=== PATIENT | female | born 1945 | race Caucasian/White ===

== ENCOUNTER → 2017-02-23 | Outpatient (CLI) | payer BC ==
[~2017-02-23] MED LIST: EPP3 IM
== END | disposition home or self-care (01) ==
LOC: C.LAB1850 12:58
PROVIDERS: ATTEND Internal Medicine Pulmonary Disease
DX: J45.909 Unspecified asthma, uncomplicated (principal)

== ENCOUNTER → 2017-03-17 | Outpatient (CLI) | payer BC ==
--- NOTE | 2017-03-17 13:29 | MAMMOGRAPHY REPORT ---
BILATERAL DIGITAL SCREENING MAMMOGRAM WITH CAD: 03/17/2017 CLINICAL HISTORY: Routine screening. TECHNIQUE: Bilateral CC and MLO views were obtained. Current study was also evaluated with a Comput er Aided Detection (CAD) system. COMPARISON: Comparison is made to exams dated: 03/14/2016 mammogram, 03/09/2015 mammogram, 03/08/2014 m ammogram, 03/07/2013 mammogram, 03/02/2012 mammogram, and 02/27/2011 mammogram - [facility]. BREAST COMPOSITION: The tissue of both breasts is heterogeneously dense, which may obscure small mas ses. FINDINGS: There is expected architectural distortion in the anterior left breast, in an area of prio r surgery. This appearance is stable when comparing to all available prior mammograms dating back to at least 12/16/2007. The parenchymal pattern is unchanged. No developing mass, architectural distor tion or cluster of suspicious microcalcifications is seen in either breast. IMPRESSION: ACR BI-RADS CATEGORY 2: BENIGN There is no mammographic evidence of malignancy. A 1 year screening mammogram is recommended. The pa tient will receive written notification of the results. Approximately 10% of breast cancers are not detected with mammography. A negative mammographic report should not delay biopsy if a clinically suggestive mass is present. Yessi Ashraf M.D. ay/:03/17/2017 10:14:11 [employer]: Juan F CORREIA)(Barry), [facility] letter sent: Normal 1/2 BI-RADS Code: ACR BI-RADS Category 2: Benign
== END | disposition home or self-care (01) ==
LOC: C.MAMM 08:38
PROVIDERS: ATTEND Obstetrics & Gynecology
DX: Z12.31 Encounter for screening mammogram for malignant neoplasm of breast (principal)

== ENCOUNTER → 2017-03-23 | Outpatient (CLI) | payer BC | END | disposition home or self-care (01) | LOC: C.MAMM 09:55 | PROVIDERS: ATTEND Physician Assistant | DX: M81.0 Age-related osteoporosis without current pathological fracture (principal); M85.88 Other specified disorders of bone density and structure, other site ==

== ENCOUNTER → 2017-11-12 | Outpatient (CLI) | payer BC ==
[2017-11-12 12:39] LABS: HEMATOCRIT 46.9 % (37-47); HEMOGLOBIN 15.8 g/dL (12.0-16.0); MEAN CELL VOLUME 92.3 fL (80-100); MEAN CORPUSCULAR HEMOGLOBIN 31.1 pg (25-34); MEAN CORPUSCULAR HGB CONC 33.7 g/dl (32-36); MEAN PLATELET VOLUME 11.2 fL (7.4-10.4); PLATELET COUNT 260 K/uL (130-400); RED CELL DISTRIBUTION WIDTH CV 13.3 % (11.5-14.5); RED CELL DISTRIBUTION WIDTH SD 44.7 fL (36.4-46.3); WHITE BLOOD COUNT 4.79 K/uL (4.8-10.8)
[2017-11-12 13:21] LABS: ALT/SGPT 17 U/L (12-78); BLOOD UREA NITROGEN 9 mg/dl (7-18); CALCIUM 9.1 mg/dl (8.5-10.1); CARBON DIOXIDE 28 mmol/L (21-32); CHOLESTEROL 224 mg/dl (0-200); CREATININE 0.67 mg/dl (0.60-1.20); GLUCOSE 82 mg/dl (70-99); SODIUM 138 mmol/L (136-145)
[2017-11-12 13:26] LABS: ALKALINE PHOSPHATASE 37 U/L (45-117); AST/SGOT 18 U/L (15-37); LDL CHOLESTEROL CALCULATED 134 mg/dl; TOTAL PROTEIN 7.6 gm/dl (6.4-8.2)
--- NOTE | 2017-11-20 12:39 | CODING QUERY MEDICAL NECESSITY ---
SUPPORTING DIAGNOSIS NEEDED A supporting diagnosis is required for the test/procedure performed on this patient in order for us to be reimbursed by the patient's insurance. Please provide a supporting diagnosis for the following test/procedure listed below next to the test name along with your signature. *If there is no additional diagnosis for this patient that would support the following test/procedure please document that below next to the test/procedure. Test(s)/Procedure(s) that require a supporting diagnosis: DOS: 11/12/17 * VITAMIN B12 DIAGNOSIS: Provider Signature: Date: Thank you Cheli Quitman [employer] [facility] Information Management Once completed, please kindly fax back to [phone] For questions please call [phone]
== END | disposition home or self-care (01) ==
LOC: C.LABPVFM 07:59
PROVIDERS: ATTEND Internal Medicine
DX: E55.9 Vitamin D deficiency, unspecified (principal); G43.909 Migraine, unspecified, not intractable, without status migrainosus; M81.0 Age-related osteoporosis without current pathological fracture; Z13.220 Encounter for screening for lipoid disorders

== ENCOUNTER → 2018-04-15 | Outpatient (CLI) | payer BC ==
--- NOTE | 2018-04-15 16:00 | MAMMOGRAPHY REPORT ---
BILATERAL DIGITAL SCREENING MAMMOGRAM TOMOSYNTHESIS WITH CAD: 04/15/2018 CLINICAL HISTORY: Routine screening. Patient has no complaints. TECHNIQUE: The study was acquired using full field digital technology and interpreted from soft copy. Breast tomosynthesis in addition to standard 2D mammography was performed. Current study was also ev aluated with a Computer Aided Detection (CAD) system. COMPARISON: Comparison is made to exams dated: 03/17/2017 mammogram, 03/14/2016 mammogram, 03/09/2015 m ammogram, 03/08/2014 mammogram, 03/07/2013 mammogram, and 03/04/2012 ultrasound - [facility]. BREAST COMPOSITION: The tissue of both breasts is heterogeneously dense, which may obscure small mass es. FINDINGS: No suspicious masses, calcifications, or areas of architectural distortion are noted in either breast . There has been no significant interval change compared to prior exams. There is stable postsurgica l architectural distortion in the left upper outer anterior breast. A linear scar marker overlies th e left upper outer breast. IMPRESSION: ACR BI-RADS CATEGORY 2: BENIGN There is no mammographic evidence of malignancy. A 1 year screening mammogram is recommended.( 019) The patient will receive written notification of the results. Some breast cancers are not detected with mammography. A negative mammographic report should not neville y biopsy if a clinically suggestive mass is present. Oliva Jamil M.D. /:04/15/2018 14:30:59 Android Software Engineer: [employer] [place](Mikey)(M), [facility] letter sent: Normal 1/2 BI-RADS Code: ACR BI-RADS Category 2: Benign
== END | disposition home or self-care (01) ==
LOC: C.MAMM 13:27
PROVIDERS: ATTEND Internal Medicine
DX: Z12.31 Encounter for screening mammogram for malignant neoplasm of breast (principal)

== ENCOUNTER 2019-06-27 07:46 | Observation (INO) ==
--- NOTE | 2019-06-21 11:36 | Anesthesiology Consultation ---
Date of Service June 21, 2019 Assessment & Plan (1) Encounter for pre-operative examination: Chart Review Chart Review: Acceptable Risk for Surgery and Patient NOT seen in Pre Admission Testing Consults Requested none History Surgery Operation Date: 06/27/19 07:00 Proposed Procedures p Left Breast Lumpectomy with [place] Lymph Node Biopsy - Igor Cuevas MD, FACS Height/Weight Height: 5 ft 7.5 in Weight: 67.585 kg Allergies Allergy/AdvReac Type Severity Reaction Status Date / Time bee venom protein (honey bee) Allergy Severe Anaphylaxis Verified 06/14/19 11:04 nickel Allergy Intermediate swollen Verified 06/14/19 11:04 ears with cheap earrings/jewelry No Known Drug Allergies Allergy Verified 06/14/19 11:04 Medications Home Medications Medication Instructions Recorded Confirmed Last Taken cholecalciferol (vitamin D3) 2,000 2,000 units PO QAM cap 04/26/19 06/14/19 05/30/19 unit capsule cyanocobalamin (vit B-12) 100 mcg 100 mcg PO DAILY tab 04/26/19 06/14/19 05/30/19 tablet rizatriptan 10 mg tablet 10 mg PO UD PRN #27 tab 04/26/19 06/14/19 05/30/19 epinephrine 0.3 mg/0.3 mL 0.3 mg IM Q10M PRN 04/28/19 06/14/19 Unknown injection, auto-injector mometasone 220 mcg/actuation(30 1 puffs INH QAM ea 04/28/19 06/14/19 05/30/19 doses) breath activated powder inhaler calcium carbonate [Calcium 600] 600 mg PO DAILY 05/26/19 06/14/19 05/30/19 Past Medical History Medical History Arthritis (Acute) Asthma (Acute) uses Asmanex daily. well controlled Osteoporosis (Acute) Bladder prolapse Breast cancer NEW DX (RECENT BIOPSY) Compression fracture of T4 vertebra with routine healing ~T4-T5-T6 (1969). no surgery. Infertility Migraine Past Family History Family History Mother Diabetes Family history of diabetes mellitus Acute myocardial infarction Heart disease Father Family history of emphysema Aunt Melanoma Grandmother No problems noted. Brother Leukemia Grandmother (Maternal) Diabetes Past Surgical History Surgical History H/O dilation and curettage H/O hand surgery LEFT HAND LITTLE FINGER TENDON REPAIR History of colposcopy History of tooth extraction Hx of laparoscopy S/P breast biopsy, left (05/31/19) Localized Lt breast bx 05/31/19 Dr. Cuevas. LMA #4. No issues. Social History Smoking Status: Former smoker tobacco type: cigarettes Do You Dip or Chew Tobacco: No Smoking End Date: QUIT 35 YEARS AGO Hx Alcohol Use: Yes Alcohol type: beer and wine alcohol intake frequency: 0-2 drinks per day Hx Substance Use: No substance use type: does not use Testing Laboratory Results Laboratory Tests 06/20/19 06/20/19 09:30 09:30 WBC 5.20 Hgb 14.9 Hct 44.4 Plt Count 295 Sodium 134 L Potassium 3.8 Chloride 99 Carbon Dioxide 29 BUN 7 Creatinine 0.59 L Glucose 79 Electrocardiogram Electrocardiogram Date: 09/08/18 Findings: + NSR @ 80
[~2019-06-27 07:46] MED LIST changes: +CEFAZOLIN 2000MG 2,000 MG/15 ML SYR IV SCH; -EPP3 IM; +LR 15ML/HR IV SCH
--- NOTE | 2019-06-27 08:58 | Nuclear Medicine Report ---
LYMPHOSCINTIGRAPHY CLINICAL HISTORY: Left breast cancer. PROCEDURE: Using standard sterile technique, 4 intradermal and one deep injection of 0.505 mCi of Lym phoseek was placed in the left breast. The patient tolerated the procedure well. There were no immedi ate complications. The patient was subsequently transported to the surgical suite. No imaging was obt ained at the referring physician's request. IMPRESSION: Injection of 0.505 mCi of Lymphoseek in the left breast. Electronically signed by: Ortega Carrillo M.D. 06/27/2019 8:57 AM
[2019-06-27] MEDS ORDERED: LIDOCAINE HCL 2% 2 ML VIAL/AMP(20MG/ML) INFIL ONE (10:55)
[2019-06-27] MEDS ORDERED: PROPOFOL IV EMULSION 10 MG/ML 20 ML VIAL IV ONE (10:55)
[2019-06-27] MEDS ORDERED: DEXAMETHASONE SOD INJ 4 MG/ML VIAL ONE (10:55)
[2019-06-27] MEDS ORDERED: ONDANSETRON INJ 2 MG/ML 2 ML VIAL ONE (10:55)
[2019-06-27] MEDS ORDERED: MIDAZOLAM HCL 1 MG/ML 2ML VIAL ONE (10:56)
[2019-06-27] MEDS ORDERED: fentaNYL citrate 100 MCG/2 ML VIAL ONE (10:56)
[2019-06-27] MEDS ORDERED: ISOSULFAN BLUE 10 MG/ML VIAL 5 ML ONE (11:48)
[2019-06-27] MEDS ORDERED: BUPIVACAINE 0.5 % 5 MG/1 ML MPF 30ML VIAL ONE (11:48)
--- NOTE | 2019-06-27 11:53 | History & Physical Bridge Note ---
Date of Service June 27, 2019 History & Physical Bridge Note I have examined the patient, reviewed the History & Physical and in the interval since the performance of the History & Physical I have noted the following changes of clinical significance: no changes noted
[2019-06-27] MEDS ORDERED: HYDROmorphone INJ 2 MG/ML SYR/VIAL IV PRN (12:17)
[2019-06-27] MEDS ORDERED: ePHEDrine sulfate 50 MG/ML AMP IV PRN (12:17)
[2019-06-27] MEDS ORDERED: METOCLOPRAMIDE HCL INJ 5 MG/ML 2 ML VIAL IV PRN (12:17)
[2019-06-27] MEDS ORDERED: ONDANSETRON INJ 2 MG/ML 2 ML VIAL IV PRN ×2 (12:17→15:33)
[2019-06-27] MEDS ORDERED: DEXAMETHASONE SOD INJ 4 MG/ML VIAL IV PRN (12:17)
[2019-06-27] MEDS ORDERED: ATROPINE SULFATE 0.1 MG/ML 10ML SYR IV PRN (12:17)
[2019-06-27] MEDS ORDERED: PROMETHAZINE HCL 12.5 MG in SODIUM CHLORIDE 0.9% 50 ML IV PRN ×2 (12:17→15:33)
[2019-06-27] MEDS ORDERED: ACETAMINOPHEN 1,000 MG/100 ML VIAL IV ONE (13:38)
--- NOTE | 2019-06-27 13:38 | Operative Report ---
PG Post Operative Report Pre & Post Diagnosis Operation Date: 06/27/19 11:50 Pre-Op Diagnosis: Left Breast Cancer W/NM LYMPH INJ Post-Op Diagnosis: Left Breast Cancer W/NM LYMPH INJ Procedure Operation Date: 06/27/19 11:50 Actual Procedures p Left Breast Lumpectomy with [place] Lymph Node Biopsy(Left) - Igor Cuevas MD, FACS Surgeon Igor Cuevas MD, FACS Retail Supervisor Ann-Marie Willis Estimated Blood Loss 10 Findings Consistent with Post-Op Diagnosis Specimens Lt breast tissue and Lt sentinel lymph node Description of Procedure see dictation I attest to the content of the Intraoperative Record and any orders documented therein. Any exceptions are noted below.
[2019-06-27] MEDS ORDERED: ACETAMINOPHEN 1000 MG/100 ML IV IV ONE (13:50)
--- NOTE | 2019-06-27 14:00 | Operative Report ---
DATE OF OPERATION: 06/27/2019 NAME OF OPERATION: Left lumpectomy with sentinel lymph node biopsy. PREOPERATIVE DIAGNOSIS: Tubular carcinoma of the left breast. POSTOPERATIVE DIAGNOSIS: Tubular carcinoma of the left breast. STAFF SURGEON: Igor Cuevas M.D. SUBSTATION TECHNICIAN: Aida Willis. ANESTHESIA: General. DESCRIPTION OF PROCEDURE: The patient was brought in the operating room and placed on the operating table in supine position. Her left breast was prepped and draped in usual fashion. The arm was extended on an arm board on the left side. My assistant food service director helped with prepping, draping, excision of the breast tissue, lymph node and closure of the wounds. Initially, incision was made in the left axilla using 0.5% plain Marcaine to anesthetize the skin. Dissection was carried down very deep into the axilla finding the sentinel node, sending it for frozen section, it was negative. During the frozen section, we performed lumpectomy. The patient had an incision at the 2 o'clock position left breast from the edge of the areola laterally. The tissue that had been positive appeared to be anterior and inferior, but this was in the retroareolar tissue just above the areola in the 1-2 o'clock position. Elliptical incision was made in the skin and then the tissue was excised, mostly in the inferior anterior area. The tissue was marked, left breast tissue, skin anterior, long silk suture lateral, short silk suture medial/retroareolar, plane suture superior. I did take additional anterior medial tissue which was upper retroareolar and this was marked with methylene blue new margin. I took additional superior medial tissue with a long silk suture lateral, short silk suture medial and methylene blue new margin. Clips were placed in the area of the suspected tumor. The patient had also had a prior retroareolar excision in this area years prior, which was negative for cancer. At this point, both incisions were closed, reapproximating the deep tissue using 2-0 plain suture. The left axilla closed using 4-0 nylon for the skin. The areolar tissue was reapproximated using 5-0 Prolene suture and the remaining breast tissue using subcuticular 4-0 Monocryl with Steri-Strips. Dressings applied and patient transferred to recovery room in stable condition. I attest to the content of the Intraoperative Record and any orders documented therein. Any exception s are noted below.
[2019-06-27] MEDS: fentaNYL citrate 100 MCG/2 ML VIAL IV PRN ×4 (14:08→14:23)
--- NOTE | 2019-06-27 14:38 | Anesthesiology Progress Note ---
Date of Service June 27, 2019 Anesthesia Post Procedure Vital Signs Vital Signs: Temp Pulse Resp BP Pulse Ox 06/27/19 14:34 36.7 C 89 14 136/89 98 06/27/19 14:24 36.7 C 88 14 142/85 H 94 06/27/19 14:15 86 18 141/86 H 100 06/27/19 14:05 84 14 149/89 H 100 06/27/19 13:55 88 14 146/87 H 100 06/27/19 13:46 36.7 C 99 H 14 140/78 99 Pain Intensity Left Breast: Pain Intensity: 3 Transfer of Care Handoff Completed per policy Notes Mental Status: alert / awake / arousable and participated in evaluation Patient Amnestic to Procedure: Yes Nausea / Vomiting: adequately controlled Pain: adequately controlled Airway Patency, RR, SpO2: stable & adequate BP & HR: stable & adequate Hydration State: stable & adequate Anesthetic Complications: no major complications apparent
[2019-06-27] MEDS ORDERED: MoRPHine SULFATE 2 MG/ML CARP IV PRN ×2 (15:33)
[2019-06-27] MEDS ORDERED: PROMETHAZINE HCL 25 MG in SODIUM CHLORIDE 0.9% 50 ML IV PRN (15:33)
[2019-06-27] MEDS ORDERED: IBUPROFEN 600 MG TAB PO PRN (15:33)
[2019-06-27] MEDS ORDERED: RIZATRIPTAN BENZOATE 10 MG TAB PO PRN (15:33)
[2019-06-27] MEDS ORDERED: ACETAMINOPHEN 325 MG TAB PO PRN (15:33)
[2019-06-27] MEDS ORDERED: HYDROCODONE/ACETAMOPHEN 5/325MG TAB PO PRN ×2 (15:33)
[2019-06-27] MEDS ORDERED: SODIUM CHLORIDE 0.9% 1000ML 1,000 ML IV SCH (15:45)
--- NOTE | 2019-06-27 17:01 | Hospitalist Consultation ---
Date of Consultation June 27, 2019 Assessment & Plan (1) Breast cancer: - s/p surgical excision of the left breast mass by Dr. Cuevas today - Pain control, diet, bowel regimen, PT/OT per primary team - Establish oncological follow up prior to discharge - Ambulate as tolerated and encourage PO intake (2) Asthma: - Stable (3) Arthritis: - Stable (4) Vitamin D deficiency: - noted (5) Osteoporosis: - Continue vit D, calcium and B daily as ordered. (6) Compression fracture: - Old, stable of T4 DVT ppx: Code: Full Dispo: From home, d/c per primary team Thank you for involving us in the care of Mrs. Pack. Please do not hesitate to call with questions or concerns. At this time medicine service will sign off. Supervising Physician Co-Signing Physician Notes Patient seen and examined, chart reviewed, case discussed with KELSI Velasquez and I agree with her assessment and plan as documented above. Briefly, 74yo C female s/p uncomplicated lumpectomy with sentinel node biopsy. Procedure well tolerated, patient doing well Plan as above History of Present Illness Reason for Consultation: Medical management Requesting Physician: Dr. Cuevas Attending Physician: Igor Cuevas MD, FACS History of Present Illness This is a 74 yo F with PMHx of newly diagnosed breast cancer in April 2019, arthritis, asthma, osteoporosis, Compression fx of T4 vertebra, and migraine hx who presented for elective surgical excision of left breast palpable mass at 2:[address] Cuevas on 06/27/19. The patient was seen and examined this afternoon. Pt states she is doing very well. Her is sitting with her at bedside. She currently is having a mild pain under the left arm into her armpit, and notes she feels this more when using her arm to help stand up from a sitting position. She has been tolerating water without difficulty but has not yet had dinner. Pt denies any other acute complaints. She is anticipating discharge to home tomorrow. Allergies Allergy/AdvReac Type Severity Reaction Status Date / Time bee venom protein (honey bee) Allergy Severe Anaphylaxis Verified 06/27/19 08:56 nickel Allergy Intermediate swollen Verified 06/27/19 08:56 ears with cheap earrings/jewelry No Known Drug Allergies Allergy Verified 06/27/19 08:56 Home Medications Home Medications Medication Instructions Recorded Confirmed Type cholecalciferol (vitamin D3) 2,000 2,000 units PO QAM cap 04/26/19 06/27/19 History unit capsule cyanocobalamin (vit B-12) 100 mcg 100 mcg PO DAILY tab 04/26/19 06/27/19 History tablet rizatriptan 10 mg tablet 10 mg PO UD PRN #27 tab 04/26/19 06/27/19 History epinephrine 0.3 mg/0.3 mL 0.3 mg IM Q10M PRN 04/28/19 06/27/19 History injection, auto-injector mometasone 220 mcg/actuation(30 1 puffs INH QAM ea 04/28/19 06/27/19 History doses) breath activated powder inhaler calcium carbonate [Calcium 600] 600 mg PO DAILY 05/26/19 06/27/19 History Patient History Medical History Arthritis (Acute) Asthma (Acute) uses Asmanex daily. well controlled Osteoporosis (Acute) Bladder prolapse Breast cancer NEW DX (RECENT BIOPSY) Infertility Compression fracture of T4 vertebra with routine healing ~T4-T5-T6 (1969). no surgery. Migraine Surgical History H/O hand surgery LEFT HAND LITTLE FINGER TENDON REPAIR History of tooth extraction S/P lumpectomy, left breast (06/27/19) Left Breast Lumpectomy with [place] Lymph Node Biopsy Dr. Cuevas 06/27/19 H/O dilation and curettage History of colposcopy Hx of laparoscopy S/P breast biopsy, left (05/31/19) Localized Lt breast bx 05/31/19 Dr. Cuevas. LMA #4. No issues. Family History Mother Diabetes Family history of diabetes mellitus Acute myocardial infarction Heart disease Father Family history of emphysema Aunt Melanoma Grandmother No problems noted. Brother Leukemia Grandmother (Maternal) Diabetes Social History Preferred Language: [place] Communication Ability: Effective Visual Impairment: No Limitations Hearing Ability: Normal Meat Seafood Associate Required: No Beliefs That Will Affect Care: None marital status: Current Living Situation: Spouse current occupational status: retired Other Information That Helps Us Care for You: No Feels Safe at Home: Yes Safety Concerns: Feels Safe At This Time Smoking Status: Former smoker Tobacco Type: cigarettes ; Do You Dip or Chew Tobacco: No ; Smoking End Date: QUIT 35 YEARS AGO ; Second Hand Exposure: No ; Tobacco Cessation Education Requested by Patient: No Hx Alcohol Use: Yes Alcohol type: beer and wine Alcohol Intake Frequency: Rarely Hx Substance Use: No Review of Systems Review of Systems: Constitutional: No fever, sweats or chills Eyes: No diplopia, no worsening or blurred vision ENT: normal hearing, no trouble swallowing Respiratory: No cough, sputum, dyspnea at rest or on exertion Cardiovascular: No chest pain, tightness or palpitations Abdomen: No pain, nausea, vomiting, diarrhea or constipation Musculoskeletal: No joint pain, calf pain, swelling Neurologic: No weakness, numbness/tingling, or balance problems Psychiatric: No anxiety or depression Skin: No rash or itch Physical Exam 2 Physical Exam: General: awake, alert, no apparent distress Head: Normocephalic, atraumatic ENT: PERRL, EOMI, no pharyngeal exudate, mucous membranes moist Chest: Clear to auscultation, on room air, no adventitious breath sounds. + bandage over the left breast is c/d/i. Cardiac: Regular rate and rhythm, no murmur, no JVD, normal peripheral pulses, good capillary refill Abdominal: NABS x 4 quadrants, soft, nontender to palpation, no rebound, guarding or tenderness Extremities: Normal inspection, no peripheral edema or erythema, calfs nontender to palpation Psych: Normal mood and affect Neuro: AAO x 3, no motor deficits, speech is clear Results & Data Vital Signs (Past 12 Hours) Vital Signs Temp Pulse Pulse Resp BP Pulse Ox 06/27/19 16:57 36.6 C 88 18 125/83 93 06/27/19 16:03 36.6 C 82 18 125/80 97 06/27/19 15:24 36.8 C 82 18 147/86 H 97 06/27/19 14:50 36.5 C 90 16 148/84 H 97 06/27/19 14:34 36.7 C 89 14 136/89 98 06/27/19 14:24 36.7 C 88 14 142/85 H 94 06/27/19 14:15 86 18 141/86 H 100 06/27/19 14:05 84 14 149/89 H 100 06/27/19 13:55 88 14 146/87 H 100 06/27/19 13:46 36.7 C 99 H 14 140/78 99 PG Care Time/CCT Total # of Minutes Spent Total Time Spent with Patient: Total time spent is greater than 50% in coordination of care (as documented) at patient's floor/unit and/or counseling patient:
[2019-06-27] MEDS: CEFAZOLIN 1000MG 1,000 MG/7.5 ML SYR IV SCH (19:55)
[2019-06-28 03:26] VITALS: TEMP 98.1
[2019-06-28] MEDS: CEFAZOLIN 1000MG 1,000 MG/7.5 ML SYR IV SCH (03:51)
[2019-06-28 07:17] VITALS: BP 133/79; PULSE 82; O2SAT 95
--- NOTE | 2019-06-28 08:54 | Anesthesiology Progress Note ---
Date of Service June 28, 2019 Anesthesia Post Procedure Vital Signs Vital Signs: Temp Pulse Pulse Resp BP Pulse Ox 06/28/19 07:14 36.7 C 82 16 133/79 95 06/28/19 03:10 36.7 C 81 16 109/71 96 06/27/19 23:04 36.5 C 90 18 125/77 94 06/27/19 18:14 36.5 C 92 H 18 137/80 94 06/27/19 16:57 36.6 C 88 18 125/83 93 06/27/19 16:03 36.6 C 82 18 125/80 97 06/27/19 15:24 36.8 C 82 18 147/86 H 97 06/27/19 14:50 36.5 C 90 16 148/84 H 97 06/27/19 14:34 36.7 C 89 14 136/89 98 06/27/19 14:24 36.7 C 88 14 142/85 H 94 06/27/19 14:15 86 18 141/86 H 100 06/27/19 14:05 84 14 149/89 H 100 06/27/19 13:55 88 14 146/87 H 100 06/27/19 13:46 36.7 C 99 H 14 140/78 99 Pain Intensity Left Breast: Pain Intensity: 3 Notes Mental Status: alert / awake / arousable and participated in evaluation Patient Amnestic to Procedure: Yes Nausea / Vomiting: adequately controlled Pain: adequately controlled Airway Patency, RR, SpO2: stable & adequate BP & HR: stable & adequate Hydration State: stable & adequate Anesthetic Complications: no major complications apparent and Pt Satisfied with anesthetic care
--- NOTE | 2019-06-28 11:13 | Discharge Summary ---
PRINCIPAL DIAGNOSIS: Left breast cancer. PROCEDURES: The patient underwent left lumpectomy with sentinel lymph node biopsy. HISTORY OF PRESENT ILLNESS: The patient is a 74-year-old female with biopsy-proven left breast cancer for definitive surgery. HOSPITAL COURSE: The patient was brought into the hospital on 06/27/2019 she underwent a left partial mastectomy/lumpectomy with sentinel lymph node biopsy which she tolerated very well. She did have some very mild dizziness overnight but most likely will be able to be discharged later this morning if she tolerates her breakfast and is able to get up without dizziness.
--- NOTE | 2019-06-28 13:58 | Hospitalist Progress Note ---
Date of Service June 28, 2019 Assessment & Plan (1) Breast cancer: - s/p surgical excision of the left breast mass by Dr. Cuevas 06/27 - Pain control, diet, bowel regimen, PT/OT per primary team - Establish oncological follow up prior to discharge - Ambulate as tolerated and encourage PO intake (2) Asthma: - Stable (3) Arthritis: - Stable. Continue current medical management (4) Vitamin D deficiency: - noted. Continue replacement therapy (5) Osteoporosis: - Continue vit D, calcium and B daily as ordered. (6) Compression fracture: - Old, stable of T4 DVT ppx: Code: Full Dispo: Home today per surgical service Subjective The patient was seen earlier this morning prior to discharge. She is medically stable and able to be discharged per surgery. Afebrile, vital signs stable Review of Systems Review of Systems: Constitutional-no fever or chills ENT-no blurred vision, no double vision, no epistaxis, no sore throat Respiratory-no cough, no wheezing, no shortness of breath Cardiac-no palpitations, no chest pain, no syncope GI-no nausea, vomiting, diarrhea, melena, hematochezia -no urinary retention, no urinary incontinence, no dysuria, no hematuria Musculoskeletal-no joint pain, no muscle tenderness Skin-no bruising, no rashes, no pruritus Neuro-no isolated weakness, no paresthesia, no weakness Psych-no depression, no anxiety Physical Exam Physical Exam: General-alert and oriented x3, no fevers, no chills HEENT-head atraumatic and normocephalic, TMs intact bilaterally, pupils equal and reactive to light, extraocular muscles intact Neck-no lymphadenopathy or thyromegaly, trachea midline Chest-clear to auscultation percussion. No rales wheezing or rhonchi Cardiac-regular rate and rhythm, normal S1 and S2, no murmurs Abdomen-normal bowel sounds, nontender, no hepatosplenomegaly Extremities-no cyanosis, clubbing, or edema Neuro-cranial nerves II through XII intact, motor and sensory function within normal limits, strength symmetrical 5/5, no focal deficits Psych-normal affect, normal mood Results & Data Vital Signs (Past 12 Hours) Vital Signs Temp Pulse Resp BP Pulse Ox 06/28/19 09:27 36.7 C 82 16 133/79 95 06/28/19 07:14 36.7 C 82 16 133/79 95 06/28/19 03:10 36.7 C 81 16 109/71 96 PG Care Time/CCT Total # of Minutes Spent Total Time Spent with Patient: Total time spent is greater than 50% in coordination of care (as documented) at patient's floor/unit and/or counseling patient:
== END 2019-06-28 11:36 | disposition home or self-care (01) ==
LOC: NM 07:46 → 3W 07:46

== ENCOUNTER 2023-01-12 16:12 | Inpatient (IN) ==
[2023-01-12] MEDS ORDERED: ONDANSETRON INJ 2 MG/ML 2 ML VIAL IV STA (16:41)
[2023-01-12] MEDS: fentaNYL citrate PF 100 MCG/2 ML VIAL IV PRN ×2 (17:03→20:38)
--- NOTE | 2023-01-12 17:15 | Emergency Department Note ---
Impression & Plan Subcapital fracture of right hip, Contusion of right shoulder, Fall, Hypoxia, Abnormal chest x-ray ED Provider Note NAME: JOSE GOSS AGE: 77 SEX: F : 1945 ARRIVES VIA: Ambulance INFORMANT: Patient, ED PROVIDER(S): Miguel Brunson DO CHIEF COMPLAINT: Hip pain HPI: The patient is a 77-year-old female who fell down approximately 2 steps. She fell onto her right side. She states that she was having severe pain especially her right hip. She was unable to stand. For this reason she called 911. The patient arrived via ambulance. She denies having any nausea or vomiting. She denies having any chest pain. She denies having any difficulty breathing. She does complain of some neck pain as well as right shoulder pain. She states the pain is worsened with trying to ambulate or move her right hip. She denies having any lower extremity pain. The patient has no history of previous injury to the hip. ROS: See above HPI for pertinent positives & negatives. A total of 10 systems reviewed and were otherwise negative. PAST MEDICAL HISTORY: See Below PAST SURGICAL HISTORY: See Below FAMILY HISTORY: See Below SOCIAL HISTORY: See Below HOME MEDICATIONS: See Below ALLERGIES: See Below VITALS: See Below PHYSICAL EXAMINATION: GENERAL: The patient is awake and alert. She is very anxious appearing. She appears to be in significant pain. EYES: The conjunctivae are clear. The pupils are round and reactive. EARS, NOSE, MOUTH AND THROAT: The nose is without any evidence of any deformity. NECK: Tenderness is noted at the lower cervical spine. Range of motion does appear intact. RESPIRATORY: Normal respiratory effort is noted there is no evidence of wheezing rhonchi or rales CARDIOVASCULAR: Regular rate and rhythm noted there no murmurs rubs or gallops normal S1 normal S2. GASTROINTESTINAL: The abdomen is soft. Abdomen is nontender. BACK: No midline tenderness or or step-off noted range of motion in flexion extension as well as rotation no signs of muscle spasm noted MUSCULOSKELETAL/EXTREMITIES: Right lower extremity slightly shortened. There is mild internal rotation. Patient has no tenderness over the right knee or right ankle. Range of motion of the left leg is intact and not painful. The patient does have pain with range of motion testing right shoulder. There is no deformity. SKIN: There is no obvious evidence of any rash. There are no petechiae, pallor or cyanosis noted. NEUROLOGIC: Patient is awake alert and oriented x3. Strength is symmetric. There is no facial droop. Speech was clear. MEDICAL DECISION MAKING: The patient is a 77-year-old female who presented to the emergency department for an evaluation of hip pain. The patient had a fall. She landed onto her right side. She had significant pain in her right shoulder as well as her right hip. She also had some neck pain. The patient was treated with pain medication in the emergency department. She was reevaluated multiple times. I discussed the patient's laboratory and radiographic studies with her. Along with a hip fracture she was also found to be hypoxic. Breath sounds were not overwhelmingly abnormal but chest x-ray does appear to be consistent with diffuse abnormality which could be related to infection versus pulmonary edema. The patient's white blood cell count was mildly elevated. For this reason blood cultures and further test were added as well as IV antibiotics. [facility] to evaluate the patient in the emergency department for further management and disposition. The patient was treated with IV pain medication. Triage Nursing notes reviewed. Prior medical records reviewed Vital Signs: reviewed and remarkable for hypoxia. Differential diagnosis: Fracture, dislocation, contusion, intra-abdominal, pneumothorax, intrathoracic, intracranial, neurologic, compartment syndrome, rhabdomyolysis, as well as other pathologies. ER treatment provided: See below Diagnostics interpreted by me: ECG: EKG was obtained in the emergency department. My interpretation is normal sinus rhythm at 98 bpm. There is no ectopy. There is no acute ST segment abnormalities noted. This was compared to a tracing from April 08, 2020. No significant changes were noted. Cardiac Monitoring: An order was placed for continuous cardiac monitoring. The monitor shows a rate of 96 bpm with sinus rhythm. Laboratory studies: As stated above and show below. Imaging studies: See below. Radiographic imaging was reviewed by myself Consultation(s): I discussed this case with Luli who [facility] They will evaluate the patient in the emergency department. Past Med/Surg History Medical History Arthritis Asthma uses Asmanex daily. well controlled Bladder prolapse Breast cancer Left - Diagnosed 04/27/19 Bronchiolitis Compression fracture of T4 vertebra with routine healing ~T4-T5-T6 (1969). no surgery. Infertility Migraine Osteoporosis Sensorineural hearing loss (SNHL) of left ear with restricted hearing of right ear Surgical History H/O dilation and curettage H/O hand surgery - LEFT HAND PINKY FINGER TENDON REPAIR History of colposcopy late History of cryosurgery History of tooth extraction 1964 Hx of laparoscopy Late S/P breast biopsy, left (05/31/19) 04/27/19 S/P breast biopsy, right 04/27/19 - Negative S/P lumpectomy, left breast (06/27/19) Left Breast Lumpectomy with [place] Lymph Node Biopsy (negative) Dr. Cuevas 06/27/19 Status post breast lumpectomy Family History Mother , Passed age 78 of [place] (Second One) Diabetes Acute myocardial infarction Heart disease Father , Passed age 54 of [place] / Respiratory Failure Emphysema of lung Aunt , Passed from Stroke Melanoma Brother Leukemia, Onset Age: 55 was in remission for 18 years, Hairy Cell Leukemia - currently being treated Hypertension Cancer LEUKEMIA Allergies Brother Allergies Sister Hypertension Other Has no children No family history of adverse response to anesthesia No family history of bleeding disorder Denies family history of Ovarian cancer Prostate cancer Breast cancer Lung cancer Colorectal cancer Stroke Social History Smoking Status: Never smoker packs per day: 0.5; Second Hand Exposure: No; Hx Alcohol Use: Yes Alcohol type: beer and wine Alcohol Intake Frequency Comment: 1-2 beers Hx Substance Use: No Preferred Language: Luxembourgish Communication Ability: Effective Visual Impairment: No Limitations Hearing Ability: Normal Security Services Specialist Required: No Beliefs That Will Affect Care: None marital status: Current Living Situation: Spouse current occupational status: retired 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 Feels Safe at Home: Yes Childhood Exposure to Second-Hand Smoke: No caffeine: Yes (2 Cups of Coffee / Day ) during the past year weight has: remained stable Dental Care, Regularly: Yes Physical Activity Frequency: Daily Physical Activity Frequency Comment: walking Seatbelt Use: always Sunscreen Use: No Assistive Devices: None Allergies Allergies Allergy/AdvReac Type Severity Reaction Status Date / Time bee venom protein (honey bee) Allergy Severe Anaphylaxis Verified 12/01/22 08:49 nickel Allergy Intermediate swollen Verified 12/01/22 08:49 ears with cheap earrings/jewelry Home Meds Home Medications Medication Instructions Recorded Confirmed cholecalciferol (vitamin D3) 50 2,000 units PO QAM 04/26/19 12/01/22 mcg (2,000 unit) capsule calcium carbonate 600 mg calcium 600 mg PO DAILY 05/26/19 12/01/22 (1,500 mg) tablet (Calcium) triamcinolone acetonide 0.1 % 1 appln topical DAILY PRN for skin 07/14/19 10/20/22 topical cream cyanocobalamin (vitamin B-12) 100 100 mcg PO DAILY 07/10/21 12/01/22 mcg tablet Previous Rx's Medication Instructions Recorded rizatriptan 10 mg tablet 10 mg PO PRN MIGRAINES #30 tabs 01/16/21 epinephrine 0.3 mg/0.3 mL 0.3 mg (0.3 mL) IM Q10M PRN 03/07/21 injection, auto-injector Anaphylaxis #2 ea mometasone 220 mcg/actuation(30 1 inh inhalation DAILY #3 Inhalers 06/25/22 doses) breath activated powder inhaler (Asmanex Twisthaler) Results & Data (ED) Vital Signs Vital Signs - 24 hr 01/12/23 16:30 01/12/23 16:24 Temperature 36.7 C Temperature Source Oral Pulse Rate 96 H 95 H Respiratory Rate 18 Respiratory Effort / Characteristics Non-Labored Respiratory Depth Normal Blood Pressure 134/74 Blood Pressure Mean 94 Pulse Oximetry 81 L Oxygen Delivery Method Room Air Sepsis Recent Fever Within 48 Hours No Sepsis New/Unexplained Change in Mental Status No Sepsis Action Taken by Nursing No Action Required Laboratory Data 01/12/23 16:41 01/12/23 16:41 Lab Results 01/12/23 01/12/23 01/12/23 Range/Units 16:41 16:41 16:41 WBC 16.48 H (4.8-10.8) K/ul RBC 4.72 (4.20-5.40) M/uL Hgb 14.7 (12.0-16.0) g/dl Hct 42.7 (37.0-47.0) % MCV 90.5 (80.0-100.0) fL MCH 31.1 (25.0-34.0) pg MCHC 34.4 (32.0-36.0) g/dL RDW Std Deviation 43.1 (36.4-46.3) fL RDW Coeff of Zahida 13.1 (11.5-14.5) % Plt Count 242 (130-400) K/uL MPV 10.3 (9.4-12.4) fL Immature Gran % (Auto) 0.7 % Neut % (Auto) 88.9 % Lymph % (Auto) 5.6 % [place] % (Auto) 4.5 % Eos % (Auto) 0.1 % Baso % (Auto) 0.2 % Neut # (Auto) 14.65 H (1.40-6.50) K/uL Lymph # (Auto) 0.93 L (1.2-3.4) K/uL [place] # (Auto) 0.74 H (0.11-0.59) K/uL Eos # (Auto) 0.01 (0-0.50) K/uL Baso # (Auto) 0.03 (0-0.2) K/uL Immature Gran # (Auto) 0.12 (0.01-0.20) K/uL PT 11.7 (9.0-12.0) Seconds INR 1.1 (0.9-1.1) APTT 26.6 (21.0-31.0) Seconds PTT Ratio 0.9 Sodium (136-145) mmol/L Potassium (3.5-5.1) mmol/L Chloride (98-107) mmol/L Carbon Dioxide (21-32) mmol/L Anion Gap (3-11) BUN (6-23) mg/dl Creatinine (0.6-1.2) mg/dl Est Cr Clr Drug Dosing Est GFR ( Amer) ml/min Est GFR (Non-Af Amer) ml/min BUN/Creatinine Ratio (10-20) Glucose (70-99(Fasting)) mg/dl Calcium (8.6-10.3) mg/dl Total Bilirubin (0.2-1.0) mg/dl AST (13-39) U/L ALT (7-52) U/L Alkaline Phosphatase (34-104) U/L Troponin I High Sens Cancelled Total Protein (6.0-8.3) gm/dl Albumin (3.4-5.0) gm/dl Globulin (2.5-4.0) gm/dl Albumin/Globulin Ratio (0.9-2) Lipase (11-82) U/L SARS-CoV-2, RNA, NAAT (NEGATIVE) 01/12/23 01/12/23 Range/Units 16:41 16:55 WBC (4.8-10.8) K/ul RBC (4.20-5.40) M/uL Hgb (12.0-16.0) g/dl Hct (37.0-47.0) % MCV (80.0-100.0) fL MCH (25.0-34.0) pg MCHC (32.0-36.0) g/dL RDW Std Deviation (36.4-46.3) fL RDW Coeff of Zahida (11.5-14.5) % Plt Count (130-400) K/uL MPV (9.4-12.4) fL Immature Gran % (Auto) % Neut % (Auto) % Lymph % (Auto) % [place] % (Auto) % Eos % (Auto) % Baso % (Auto) % Neut # (Auto) (1.40-6.50) K/uL Lymph # (Auto) (1.2-3.4) K/uL [place] # (Auto) (0.11-0.59) K/uL Eos # (Auto) (0-0.50) K/uL Baso # (Auto) (0-0.2) K/uL Immature Gran # (Auto) (0.01-0.20) K/uL PT (9.0-12.0) Seconds INR (0.9-1.1) APTT (21.0-31.0) Seconds PTT Ratio Sodium 131 L (136-145) mmol/L Potassium 3.5 (3.5-5.1) mmol/L Chloride 99 (98-107) mmol/L Carbon Dioxide 23 (21-32) mmol/L Anion Gap 9 (3-11) BUN 10 (6-23) mg/dl Creatinine 0.46 L (0.6-1.2) mg/dl Est Cr Clr Drug Dosing Not Reportable Est GFR ( Amer) 111.2 ml/min Est GFR (Non-Af Amer) 96.0 ml/min BUN/Creatinine Ratio 21.7 H (10-20) Glucose 90 (70-99(Fasting)) mg/dl Calcium 8.8 (8.6-10.3) mg/dl Total Bilirubin 0.6 (0.2-1.0) mg/dl AST 25 (13-39) U/L ALT 19 (7-52) U/L Alkaline Phosphatase 40 (34-104) U/L Troponin I High Sens 8.2 Total Protein 7.0 (6.0-8.3) gm/dl Albumin 3.9 (3.4-5.0) gm/dl Globulin 3.1 (2.5-4.0) gm/dl Albumin/Globulin Ratio 1.3 (0.9-2) Lipase 15 (11-82) U/L SARS-CoV-2, RNA, NAAT NEGATIVE (NEGATIVE) Administered Medications Fentanyl Citrate (Fentanyl Citrate Pf 100 Mcg/2 Ml Vial) 50 mcg IV Q15M PRN PRN Reason: Pain Stop: 01/26/23 16:40 Last Admin: 01/12/23 17:03 Dose: 50 mcg Documented By: BEZ Discontinued Medications Ondansetron HCl (Ondansetron Inj 2 Mg/Ml 2 Ml Vial) 4 mg IV NOW STA Stop: 01/12/23 16:42 Last Admin: 01/12/23 17:53 Dose: 4 mg Documented By: NRB Imaging Data Attestation: I personally reviewed and interpreted this imaging study as follows: My Impression: X-ray of the chest was obtained in the emergency department. My interpretation is diffuse infiltrate versus pulmonary edema, final report below. X-ray of the right hip was obtained. My interpretation is subcapital right hip fracture, final report below. Radiologist's Impression: Cervical Spine CT 01/12/23 16:41 CT cervical spine wo con CLINICAL HISTORY: fall TECHNIQUE: Multidetector row helical CT of the cervical spine was performed without administration of intravenous contrast. Coronal and sagittal reformations were obtained. Automated dose lowering techniques and/or adjustment according to patient size were utilized for this exam. Comparison: Comparison is made to CTA neck 04/08/2020 FINDINGS: No acute fractures or subluxations are identified. Degenerative changes are seen in the visualized spine. The alignment is normal. Soft tissues are unremarkable. IMPRESSION: Degenerative changes without evidence of acute bony injury. ACT 112: Negative or not required by law. Electronically signed by: Alexis Enrique M.D. 01/12/2023 5:23 PM Chest X-Ray 01/12/23 16:41 XR chest 1V portable CLINICAL HISTORY: Chest pain, nonspecific TECHNIQUE: Single frontal radiograph of the chest was obtained. Comparison: Comparison is made to chest radiograph 04/08/2020 FINDINGS: No lines and tubes are seen. The cardiomediastinal silhouette is normal. Multifocal airspace opacities are seen. No evidence of pleural effusion or pneumothorax. IMPRESSION: Multifocal airspace opacities may represent atelectasis, pneumonia, and/or aspiration. ACT 112: Negative or not required by law. Electronically signed by: Alexis Enrique M.D. 01/12/2023 5:[address] 01/12/23 16:[address] DOSE: HISTORY: fall TECHNIQUE: Multiaxial CT images of the head were performed without the use of intravenous contrast. Automated exposure control was utilized for this study. A dose lowering technique was utilized adhering to the principles of ALARA. Comparison: Head CT 04/08/2020. Findings: The paranasal sinuses and mastoid air cells are clear. The calvarium and skull base are intact. There is no mass, hematoma, midline shift, acute infarct. White matter hypodensity is nonspecific but suggestive of microvascular ischemic change. The ventricles and sulci demonstrate mild age-related involutional changes. Impression: No acute intracranial abnormality. Atrophy and microvascular ischemic changes. ACT 112: Negative or not required by law. Electronically signed by: Johnathon Rosen M.D. 01/12/2023 5:24 PM Hip/Pelvis X-Ray 01/12/23 16:41 XR hip RT 2V w pelvis CLINICAL HISTORY: fall TECHNIQUE: 2 views of the right hip and single frontal view of the pelvis were obtained. Comparison: None available at the time of this dictation. FINDINGS: There is a subcapital fracture of the right femoral neck. Prominent degenerative changes are seen bilaterally. No soft tissue abnormality is seen. IMPRESSION: Right subcapital femoral neck fracture. Prominent degenerative changes are seen. ACT 112: Negative or not required by law. Electronically signed by: Alexis Enrique M.D. 01/12/2023 5:41 PM Shoulder X-Ray 01/12/23 16:41 XR shoulder RT min 2V routine CLINICAL HISTORY: fall. Right shoulder pain. COMPARISON STUDY: None. FINDINGS: The bones are osteopenic. No acute fracture or dislocation within the right shoulder. The right clavicle is intact. Hazy airspace opacities and interstitial thickening seen within the right lung. This favors pulmonary edema. IMPRESSION: 1. No acute fracture or dislocation within the right shoulder. 2. Hazy airspace opacities and interstitial thickening within the right lung. This favors pulmonary edema. ACT 112: Negative or not required by law. Electronically signed by: Johnathon Rosen M.D. 01/12/2023 5:41 PM Discharge Plan Visit Data Chief Complaint: Fall Stated Complaint: FALL, HIP PAIN ED Provider: Miguel Brunson Discharge Problem: Subcapital fracture of right hip, Contusion of right shoulder, Fall, Hypoxia, Abnormal chest x-ray Patient Disposition: Being Evaluated by Hospitalist Forms Stand Alone Forms: [facility], [facility] Prescriptions Prescriptions: No Action triamcinolone acetonide 0.1 % cream 1 appln TOP DAILY PRN (Reason: for skin) Asmanex Twisthaler 220 mcg/ actuation (30) aerosol powdr breath activated 1 inh INHALATION DAILY Qty: 3 3RF rizatriptan 10 mg tablet 10 mg PO PRN Qty: 30 3RF epinephrine 0.3 mg/0.3 mL auto-injector 0.3 mg IM Q10M PRN (Reason: Anaphylaxis) Qty: 2 3RF cholecalciferol (vitamin D3) 2,000 unit capsule 2,000 units PO QAM cyanocobalamin (vitamin B-12) 100 mcg tablet 100 mcg PO DAILY calcium carbonate [Calcium 600] 600 mg calcium (1,500 mg) Tablet 600 mg PO DAILY Referrals Referrals: Miguel Dee MD [Primary Care Provider] -
[2023-01-12 17:20] LABS: Basophils # (auto) 0.03 K/uL (0-0.2); Basophils % (auto) 0.2 %; Eosinophils # (auto) 0.01 K/uL (0-0.50); Eosinophils % (auto) 0.1 %; Hematocrit (blood only) 42.7 % (37.0-47.0); Hemoglobin 14.7 g/dl (12.0-16.0); Immature Granulocytes # (auto) 0.12 K/uL (0.01-0.20); Immature Granulocytes % (auto) 0.7 %; Lymphocytes # (auto) 0.93 K/uL (1.2-3.4); Lymphocytes % (auto) 5.6 %; Mean Corpuscular Hemoglobin 31.1 pg (25.0-34.0); Mean Corpuscular Hgb Conc 34.4 g/dL (32.0-36.0); Mean Corpuscular Volume 90.5 fL (80.0-100.0); Mean Platelet Volume 10.3 fL (9.4-12.4); Monocytes # (auto) 0.74 K/uL (0.11-0.59); Monocytes % (auto) 4.5 %; Neutrophils # (auto) 14.65 K/uL (1.40-6.50); Neutrophils % (auto) 88.9 %; Platelet Count 242 K/uL (130-400); RDW Coefficient of Variation 13.1 % (11.5-14.5); RDW Standard Deviation 43.1 fL (36.4-46.3); Red Blood Count 4.72 M/uL (4.20-5.40); White Blood Count 16.48 K/ul (4.8-10.8)
--- NOTE | 2023-01-12 17:25 | CT Scan Report ---
CT cervical spine wo con CLINICAL HISTORY: fall TECHNIQUE: Multidetector row helical CT of the cervical spine was performed without administration of intravenous contrast. Coronal and sagittal reformations were obtained. Automated dose lowering techn iques and/or adjustment according to patient size were utilized for this exam. Comparison: Comparison is made to CTA neck 04/08/2020 FINDINGS: No acute fractures or subluxations are identified. Degenerative changes are seen in the visualized sp ine. The alignment is normal. Soft tissues are unremarkable. IMPRESSION: Degenerative changes without evidence of acute bony injury. ACT 112: Negative or not required by law. Electronically signed by: Alexis Enrique M.D. 01/12/2023 5:23 PM
--- NOTE | 2023-01-12 17:25 | CT Scan Report ---
HEAD CT NONCONTRAST CT DOSE: HISTORY: fall TECHNIQUE: Multiaxial CT images of the head were performed without the use of intravenous contrast. A utomated exposure control was utilized for this study. A dose lowering technique was utilized adheri ng to the principles of ALARA. Comparison: Head CT 04/08/2020. Findings: The paranasal sinuses and mastoid air cells are clear. The calvarium and skull base are int act. There is no mass, hematoma, midline shift, acute infarct. White matter hypodensity is nonspecifi c but suggestive of microvascular ischemic change. The ventricles and sulci demonstrate mild age-rela katherine involutional changes. Impression: No acute intracranial abnormality. Atrophy and microvascular ischemic changes. ACT 112: Negative or not required by law. Electronically signed by: Johnathon Rosen M.D. 01/12/2023 5:24 PM
--- NOTE | 2023-01-12 17:42 | XRay Report ---
XR chest 1V portable CLINICAL HISTORY: Chest pain, nonspecific TECHNIQUE: Single frontal radiograph of the chest was obtained. Comparison: Comparison is made to chest radiograph 04/08/2020 FINDINGS: No lines and tubes are seen. The cardiomediastinal silhouette is normal. Multifocal airspace opacitie s are seen. No evidence of pleural effusion or pneumothorax. IMPRESSION: Multifocal airspace opacities may represent atelectasis, pneumonia, and/or aspiration. ACT 112: Negative or not required by law. Electronically signed by: Alexis Enrique M.D. 01/12/2023 5:40 PM
--- NOTE | 2023-01-12 17:43 | XRay Report ---
XR hip RT 2V w pelvis CLINICAL HISTORY: fall TECHNIQUE: 2 views of the right hip and single frontal view of the pelvis were obtained. Comparison: None available at the time of this dictation. FINDINGS: There is a subcapital fracture of the right femoral neck. Prominent degenerative changes are seen shon aterally. No soft tissue abnormality is seen. IMPRESSION: Right subcapital femoral neck fracture. Prominent degenerative changes are seen. ACT 112: Negative or not required by law. Electronically signed by: Alexis Enrique M.D. 01/12/2023 5:41 PM
--- NOTE | 2023-01-12 17:43 | XRay Report ---
XR shoulder RT min 2V routine CLINICAL HISTORY: fall. Right shoulder pain. COMPARISON STUDY: None. FINDINGS: The bones are osteopenic. No acute fracture or dislocation within the right shoulder. The r ight clavicle is intact. Hazy airspace opacities and interstitial thickening seen within the right neeru ng. This favors pulmonary edema. IMPRESSION: 1. No acute fracture or dislocation within the right shoulder. 2. Hazy airspace opacities and interstitial thickening within the right lung. This favors pulmonary e rajinder. ACT 112: Negative or not required by law. Electronically signed by: Johnathon Rosen M.D. 01/12/2023 5:41 PM
[2023-01-12 17:44] LABS: Alanine Aminotransferase 19 U/L (7-52); Albumin Globulin Ratio 1.3 (0.9-2); Albumin Level 3.9 gm/dl (3.4-5.0); Alkaline Phosphatase 40 U/L (34-104); Anion Gap 9 (3-11); Aspartate Aminotransferase 25 U/L (13-39); BUN Creatinine Ratio 21.7 (10-20); Bilirubin,Total 0.6 mg/dl (0.2-1.0); Blood Urea Nitrogen 10 mg/dl (6-23); Calcium 8.8 mg/dl (8.6-10.3); Carbon Dioxide 23 mmol/L (21-32); Chloride 99 mmol/L (98-107); Est GFR (African American) 111.2 ml/min; Globulin 3.1 gm/dl (2.5-4.0); Glucose 90 mg/dl (70-99(Fasting)); Lipase 15 U/L (11-82); Potassium 3.5 mmol/L (3.5-5.1); Sodium 131 mmol/L (136-145)
[2023-01-12 17:47] LABS: INR 1.1 (0.9-1.1); Partial Thromboplastin Ratio 0.9; Partial Thromboplastin Time 26.6 Seconds (21.0-31.0); Prothrombin Time 11.7 Seconds (9.0-12.0)
[2023-01-12 17:50] LABS: Troponin I High Sensitivity 8.2 pg/ml (0-14)
[2023-01-12] MEDS ORDERED: cefTRIAXone SODIUM 2,000 MG/70 ML BAG IV STA (17:58)
[2023-01-12] MEDS ORDERED: ALBUT/IPRATROP 3MG/0.5MG NEB 3 ML VIAL NEB STA (18:04)
--- NOTE | 2023-01-12 18:17 | History & Physical Report ---
Date of Service January 12, 2023 Assessment & Plan (1) Fall: Plan: Fall from 2steps w/ right hip pain reported CT head negative for acute process, notes atrophy/microvascular ischemic changes CT cervical spine negative, noting degenerative changes Hip xray shows RIGHT subcapital femoral neck fracture Shoulder Xray with no acute fracture, notes hazy opacities/interstitial thickening w/i R lung, ,favoring pulm edema CXR w/ multifocal airspace opacities, ?atelectasis, pneumonia and/or aspiration WBC elevation 16.48k on admit, ?stress from fall but also w/ evidence for pneumonia. Checking procal/esr/crp. Checking biofire Mag checked given prior lows --> 1.4 and IV replacement ordered Blood cultures ordered Given ceftriaxone in ER, continue Ceftriaxone/Azithromycin for now. Check MRSA nasal Pulmonary toilet, nebs, sputum Holding off on lasix at this time but could consider given Na 131. Check TSH/ECHO for reported pulmonary congestion. EKG pending Consider repeating CT chest/pulm consult given significant change from prior and underlying mucus plugging? Supervising provider to determine chemoproph once biofire/testing returns Not optimized for surgery at this time. Monitor labs in AM, Vit D (2) Hypoxia: Plan: noted drop in sats to 81% on RA Prior CT chest in Aug 2022 w/ "No change in a 1.4 cm mixed solid and groundglass right upper lobe nodule since prior chest CT February 06, 2022. This remains indeterminate and continued imaging follow-up is recommended. No significant change in tree-in-bud nodularity within the lungs as described above. This favors a chronic infectious or inflammatory process." In patient w/ hx breast ca not on any hormonal treatment, s/p lumpectomy Duonebs, incentive spirometer, flutter valve, Mucinex BID Ceftriaxone/Azithro for coverage at present. Check MRSA nasal Per outpt Solic note, possible CORI. --> Sputum/AFB if able to produce Supplemental O2 to maintain sats -- currently 93% on 2L Titrate to maintain sats consider Pulm consultation/repeat CT for eval given significant changes (3) Subcapital fracture of right hip: Plan: noted on imaging orthopedics to be consulted npo at midnight in case of need for intervention pain control will need PT/OT consults once cleared by surgery (4) Contusion of right shoulder: Plan: pain control Suspected rotator cuff tear - defer further imaging/management to orthopedics (5) Abnormal chest x-ray: Plan: as noted above (6) Malignant neoplasm of upper-outer quadrant of right breast in female, estrogen receptor positive: Plan: [facility] (7) Vertigo: Plan: reported hx of such, denied symptoms contributing to fall (8) Asthma: Plan: hx asthma, on asthmanex daily History of Present Illness Chief Complaint: FALL, HIP FRACTURE, HYPOXIA Primary Care Provider: Miguel Dee MD 77yo female w/ PMHx significant for breast ca, lung nodule, asthma, osteoporosis presented after falling backwards down two steps when stepping backwards and landed on her right hip and shoulder. Imaging showed evidence for right subcapital fracture. Also O2 to 81%, responding nicely on 2L NC. Patient evaluated in B3B, , Doug, at bedside. Currently in NAD, on 2L NC. Reporting pain to hip, getting fentanyl but appears comfortable laying still. She denies any justyna shortness of breath, does note she may have been more short of breath with activities but has been over period of 6+ months. She denies any palpitations/history of atrial fibrillation. Does have hx breast ca s/p lumpectomy and not on hormonal therapy due to her osteoporosis. She does follow with Dr Burt for her asthma, on asthmanex daily. She notes they have been monitoring lung nodule. No recent night sweats/chills, unexplained weight loss. Inquired about sputum production rec'd by Dr Burt. She notes sometimes able to get stuff up after coughing for extended period of time but it has been white/clear, sometimes yellow. She notes she just hadn't gotten sputum done. Hx migraines but hasn't had one in several months. She denies having any fevers or chills at home over the past several weeks. No sick contacts. She notes her and have been very careful during the pandemic. COVID testing negative on admission. NO nausea/vomiting, abdominal pain, lightheadedness/dizziness. Discussed code status, full code if anything were to happen. Discussed consultation for orthopedics for possible surgical evaluation but would not want her weight bearing at this time. Currently has stovall in place. ER Course: WBC elevation 16.4k. Imaging w/ right subcapital femoral neck fracture. CXR w/ multifocal pneumonia vs atelectasis vs aspiration. ER provider ordering Duoneb (being given while exiting the room). Ceftriaxone 2gm x1. Zofran 4mg IV. Allergies Allergy/AdvReac Type Severity Reaction Status Date / Time bee venom protein (honey bee) Allergy Severe Anaphylaxis Verified 01/12/23 20:12 nickel Allergy Intermediate swollen Verified 01/12/23 20:12 ears with cheap earrings/jewelry Home Medications Medication Instructions Recorded Confirmed Type cholecalciferol (vitamin D3) 50 2,000 units PO QAM 04/26/19 01/12/23 History mcg (2,000 unit) capsule calcium carbonate 600 mg calcium 600 mg PO DAILY 05/26/19 01/12/23 History (1,500 mg) tablet (Calcium) triamcinolone acetonide 0.1 % 1 appln topical DAILY PRN for skin 07/14/19 01/12/23 History topical cream rizatriptan 10 mg tablet 10 mg PO PRN MIGRAINES #30 tabs 01/16/21 01/12/23 Rx epinephrine 0.3 mg/0.3 mL 0.3 mg (0.3 mL) IM Q10M PRN 03/07/21 01/12/23 Rx injection, auto-injector Anaphylaxis #2 ea cyanocobalamin (vitamin B-12) 100 100 mcg PO DAILY 07/10/21 01/12/23 History mcg tablet mometasone 220 mcg/actuation(30 1 inh inhalation DAILY #3 Inhalers 06/25/22 01/12/23 Rx doses) breath activated powder inhaler (Asmanex Twisthaler) Past Med/Surg History Medical History Arthritis Asthma uses Asmanex daily. well controlled Bladder prolapse Breast cancer Left - Diagnosed 04/27/19 Bronchiolitis Compression fracture of T4 vertebra with routine healing ~T4-T5-T6 (1969). no surgery. Infertility Migraine Osteoporosis Sensorineural hearing loss (SNHL) of left ear with restricted hearing of right ear Surgical History H/O dilation and curettage H/O hand surgery - LEFT HAND PINKY FINGER TENDON REPAIR History of colposcopy late History of cryosurgery History of tooth extraction 1965 Hx of laparoscopy Late S/P breast biopsy, left (05/31/19) 04/27/19 S/P breast biopsy, right 04/27/19 - Negative S/P lumpectomy, left breast (06/27/19) Left Breast Lumpectomy with [place] Lymph Node Biopsy (negative) Dr. Cuevas 06/27/19 Status post breast lumpectomy Family History Mother , Passed age 78 of NH (Second One) Diabetes Acute myocardial infarction Heart disease Father , Passed age 54 of NH / Respiratory Failure Emphysema of lung Aunt , Passed from Stroke Melanoma Brother Leukemia, Onset Age: 55 was in remission for 18 years, Hairy Cell Leukemia - currently being treated Hypertension Cancer LEUKEMIA Allergies Brother Allergies Sister Hypertension Other Has no children No family history of adverse response to anesthesia No family history of bleeding disorder Denies family history of Ovarian cancer Prostate cancer Breast cancer Lung cancer Colorectal cancer Stroke Social History Smoking Status: Former smoker packs per day: 0.5; Second Hand Exposure: Yes (Father); Do You Dip or Chew Tobacco: No; Tobacco Cessation Education Requested by Patient: No Hx Alcohol Use: Yes Alcohol type: beer Alcohol Intake Frequency Comment: 1-2 beers Hx Substance Use: No Preferred Language: Maori Communication Ability: Effective Visual Impairment: No Limitations Hearing Ability: Normal Pastry Artist Required: No Beliefs That Will Affect Care: None marital status: Current Living Situation: Spouse current occupational status: retired 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 Other Information That Helps Us Care for You: No Feels Safe at Home: Yes Safety Concerns: Feels Safe At This Time Childhood Exposure to Second-Hand Smoke: No caffeine: Yes (2 Cups of Coffee / Day ) during the past year weight has: remained stable Dental Care, Regularly: Yes Physical Activity Frequency: Daily Physical Activity Frequency Comment: walking Seatbelt Use: always Sunscreen Use: No Assistive Devices: Glasses Review of Systems Review of Systems: All systems reviewed & are unremarkable except as noted in HPI & below Physical Exam Physical Exam: General: elderly female laying flat in bed, at bedside, getting labs drawn, NAD HEENT: head normocephalic, atraumatic, mmm, trachea midline Resp: scattered faint crackles, diminished in the bases, expiratory wheezing, on 2L NC CV: regular rate/rhtyhm, no significant m/r/g, no signficiant LE edema, calves nontender, pulses palpable GI: +BS, slight distension, nontender : stovall in place MSK/Neuro: tender to palpation R shoulder, slight pain ROM R hip tender to palpation along lateral aspect, slightly shortened and internally rotated. strength 5/5 dorsiflexion/plantar flexion. NVI Psych: AOx3, pleasant and cooperative with exam Results & Data Results & Data Vital Signs (Past 12 Hours) Vital Signs Temp Pulse Resp BP Pulse Ox O2 Del Method 01/12/23 16:24 95 H 01/12/23 16:30 36.7 C 96 H 18 134/74 81 L Room Air Laboratory Results 01/12/23 01/12/23 01/12/23 Range/Units 16:55 16:41 16:41 WBC (4.8-10.8) K/ul RBC (4.20-5.40) M/uL Hgb (12.0-16.0) g/dl Hct (37.0-47.0) % MCV (80.0-100.0) fL MCH (25.0-34.0) pg MCHC (32.0-36.0) g/dL RDW Std Deviation (36.4-46.3) fL RDW Coeff of Zahida (11.5-14.5) % Plt Count (130-400) K/uL MPV (9.4-12.4) fL Immature Gran % (Auto) % Neut % (Auto) % Lymph % (Auto) % Vernon % (Auto) % Eos % (Auto) % Baso % (Auto) % Neut # (Auto) (1.40-6.50) K/uL Lymph # (Auto) (1.2-3.4) K/uL Vernon # (Auto) (0.11-0.59) K/uL Eos # (Auto) (0-0.50) K/uL Baso # (Auto) (0-0.2) K/uL Immature Gran # (Auto) (0.01-0.20) K/uL PT 11.7 (9.0-12.0) Seconds INR 1.1 (0.9-1.1) APTT 26.6 (21.0-31.0) Seconds PTT Ratio 0.9 Sodium 131 L (136-145) mmol/L Potassium 3.5 (3.5-5.1) mmol/L Chloride 99 (98-107) mmol/L Carbon Dioxide 23 (21-32) mmol/L Anion Gap 9 (3-11) BUN 10 (6-23) mg/dl Creatinine 0.46 L (0.6-1.2) mg/dl Est Cr Clr Drug Dosing Not Reportable Est GFR ( Amer) 111.2 ml/min Est GFR (Non-Af Amer) 96.0 ml/min BUN/Creatinine Ratio 21.7 H (10-20) Glucose 90 (70-99(Fasting)) mg/dl Calcium 8.8 (8.6-10.3) mg/dl Total Bilirubin 0.6 (0.2-1.0) mg/dl AST 25 (13-39) U/L ALT 19 (7-52) U/L Alkaline Phosphatase 40 (34-104) U/L Troponin I High Sens 8.2 Total Protein 7.0 (6.0-8.3) gm/dl Albumin 3.9 (3.4-5.0) gm/dl Globulin 3.1 (2.5-4.0) gm/dl Albumin/Globulin Ratio 1.3 (0.9-2) Lipase 15 (11-82) U/L SARS-CoV-2, RNA, NAAT NEGATIVE (NEGATIVE) 01/12/23 01/12/23 Range/Units 16:41 16:41 WBC 16.48 H (4.8-10.8) K/ul RBC 4.72 (4.20-5.40) M/uL Hgb 14.7 (12.0-16.0) g/dl Hct 42.7 (37.0-47.0) % MCV 90.5 (80.0-100.0) fL MCH 31.1 (25.0-34.0) pg MCHC 34.4 (32.0-36.0) g/dL RDW Std Deviation 43.1 (36.4-46.3) fL RDW Coeff of Zahida 13.1 (11.5-14.5) % Plt Count 242 (130-400) K/uL MPV 10.3 (9.4-12.4) fL Immature Gran % (Auto) 0.7 % Neut % (Auto) 88.9 % Lymph % (Auto) 5.6 % Vernon % (Auto) 4.5 % Eos % (Auto) 0.1 % Baso % (Auto) 0.2 % Neut # (Auto) 14.65 H (1.40-6.50) K/uL Lymph # (Auto) 0.93 L (1.2-3.4) K/uL Vernon # (Auto) 0.74 H (0.11-0.59) K/uL Eos # (Auto) 0.01 (0-0.50) K/uL Baso # (Auto) 0.03 (0-0.2) K/uL Immature Gran # (Auto) 0.12 (0.01-0.20) K/uL PT (9.0-12.0) Seconds INR (0.9-1.1) APTT (21.0-31.0) Seconds PTT Ratio Sodium (136-145) mmol/L Potassium (3.5-5.1) mmol/L Chloride (98-107) mmol/L Carbon Dioxide (21-32) mmol/L Anion Gap (3-11) BUN (6-23) mg/dl Creatinine (0.6-1.2) mg/dl Est Cr Clr Drug Dosing Est GFR ( Amer) ml/min Est GFR (Non-Af Amer) ml/min BUN/Creatinine Ratio (10-20) Glucose (70-99(Fasting)) mg/dl Calcium (8.6-10.3) mg/dl Total Bilirubin (0.2-1.0) mg/dl AST (13-39) U/L ALT (7-52) U/L Alkaline Phosphatase (34-104) U/L Troponin I High Sens Cancelled Total Protein (6.0-8.3) gm/dl Albumin (3.4-5.0) gm/dl Globulin (2.5-4.0) gm/dl Albumin/Globulin Ratio (0.9-2) Lipase (11-82) U/L SARS-CoV-2, RNA, NAAT (NEGATIVE) Diagnostic Findings Cervical Spine CT 01/12/23 16:41 CT cervical spine wo con CLINICAL HISTORY: fall TECHNIQUE: Multidetector row helical CT of the cervical spine was performed without administration of intravenous contrast. Coronal and sagittal reformations were obtained. Automated dose lowering techniques and/or adjustment according to patient size were utilized for this exam. Comparison: Comparison is made to CTA neck 04/08/2020 FINDINGS: No acute fractures or subluxations are identified. Degenerative changes are seen in the visualized spine. The alignment is normal. Soft tissues are unremarkable. IMPRESSION: Degenerative changes without evidence of acute bony injury. ACT 112: Negative or not required by law. Electronically signed by: Alexis Enrique M.D. 01/12/2023 5:23 PM Chest X-Ray 01/12/23 16:41 XR chest 1V portable CLINICAL HISTORY: Chest pain, nonspecific TECHNIQUE: Single frontal radiograph of the chest was obtained. Comparison: Comparison is made to chest radiograph 04/08/2020 FINDINGS: No lines and tubes are seen. The cardiomediastinal silhouette is normal. Multifocal airspace opacities are seen. No evidence of pleural effusion or pneumothorax. IMPRESSION: Multifocal airspace opacities may represent atelectasis, pneumonia, and/or aspiration. ACT 112: Negative or not required by law. Electronically signed by: Alexis Enrique M.D. 01/12/2023 5:[address] 01/12/23 16:[address] DOSE: HISTORY: fall TECHNIQUE: Multiaxial CT images of the head were performed without the use of intravenous contrast. Automated exposure control was utilized for this study. A dose lowering technique was utilized adhering to the principles of ALARA. Comparison: Head CT 04/08/2020. Findings: The paranasal sinuses and mastoid air cells are clear. The calvarium and skull base are intact. There is no mass, hematoma, midline shift, acute infarct. White matter hypodensity is nonspecific but suggestive of microvascular ischemic change. The ventricles and sulci demonstrate mild age-related involutional changes. Impression: No acute intracranial abnormality. Atrophy and microvascular ischemic changes. ACT 112: Negative or not required by law. Electronically signed by: Johnathon Rosen M.D. 01/12/2023 5:24 PM Hip/Pelvis X-Ray 01/12/23 16:41 XR hip RT 2V w pelvis CLINICAL HISTORY: fall TECHNIQUE: 2 views of the right hip and single frontal view of the pelvis were obtained. Comparison: None available at the time of this dictation. FINDINGS: There is a subcapital fracture of the right femoral neck. Prominent degenerative changes are seen bilaterally. No soft tissue abnormality is seen. IMPRESSION: Right subcapital femoral neck fracture. Prominent degenerative changes are seen. ACT 112: Negative or not required by law. Electronically signed by: Alexis Enrique M.D. 01/12/2023 5:41 PM Shoulder X-Ray 01/12/23 16:41 XR shoulder RT min 2V routine CLINICAL HISTORY: fall. Right shoulder pain. COMPARISON STUDY: None. FINDINGS: The bones are osteopenic. No acute fracture or dislocation within the right shoulder. The right clavicle is intact. Hazy airspace opacities and interstitial thickening seen within the right lung. This favors pulmonary edema. IMPRESSION: 1. No acute fracture or dislocation within the right shoulder. 2. Hazy airspace opacities and interstitial thickening within the right lung. This favors pulmonary edema. ACT 112: Negative or not required by law. Electronically signed by: Johnathon Rosen M.D. 01/12/2023 5:41 PM Supervising Physician Co-Signing Physician Notes I personally saw and examined the patient. I verified all garcia points and agree with Luli Manzanares PA-C with the following exceptions and/or additions: 77 year old female presents to the ER with right hip pain and decreased right arm movement following a fall. No chest pain, shortness of breath or dizziness prior to falling. No loss of conciousness O/E HS RRR, no murmurs, Chest CTAB, Abdo SNT, unable to lift right shoulder, right hip pain on any leg movement, NV intact distally A/P Right hip fracture - pain management, Vit D level, NPO after midnight, consult orthopedics, not yet medically optimized due to hypoxia and abnormal CXR findings Right shoulder rotator cuff suspected tear - defer further imaging.management to orthopedics Hypoxia / abnormal CXR - ?pulmonary edema secondary to fall, not otherwise hypervolemic, Biofire negative, Prior concern for CORI and need for surgical clearance therefore will consult pulmonary and repeat CXR in AM PG Care Time/CCT Total # of Minutes Spent Total Time Spent with Patient: Total time spent is greater than 50% in coordination of care (as documented) at patient's floor/unit and/or counseling patient: Coding Level of Care Code 45516 INT INP/OBS CARE 3/75MIN Diagnoses Fall W19.XXXA Encounter type: initial encounter Hypoxia R09.02 Subcapital fracture of right hip S72.011A Encounter type: initial encounter Fracture type: closed Contusion of right shoulder S40.011A Encounter type: initial encounter Abnormal chest x-ray R93.89 Malignant neoplasm of upper-outer quadrant of right breast in female, estrogen receptor positive C50.411; Z17.0 Vertigo R42 Asthma J45.909 (1) Fall Encounter type: initial encounter Qualified Code(s): W19.XXXA - Unspecified fall, initial encounter (3) Subcapital fracture of right hip Encounter type: initial encounter Fracture type: closed Qualified Code(s): S72.011A - Unspecified intracapsular fracture of right femur, initial encounter for closed fracture (4) Contusion of right shoulder Encounter type: initial encounter Qualified Code(s): S40.011A - Contusion of right shoulder, initial encounter
[2023-01-12 18:35] LABS: C Reactive Protein < 0.50 mg/dl (0-0.5); Magnesium 1.4 mg/dl (1.7-2.4)
[2023-01-12] MEDS: MAGNESIUM SULFATE / D5W 1 GM/100 ML BAG IV SCH ×2 (19:26→23:14)
[2023-01-12 20:23] LABS: Adenovirus PCR Not Detected (NotDetected); Bordetella parapertussis PCR Not Detected (NotDetected); Bordetella pertussis PCR Not Detected (NotDetected); Chlamydia pneumoniae PCR Not Detected (NotDetected); Coronavirus 229E PCR Not Detected (NotDetected); Coronavirus CoV-2 (COVID19)PCR Not Detected (NotDetected); Coronavirus HKU1 PCR Not Detected (NotDetected); Coronavirus NL63 PCR Not Detected (NotDetected); Coronavirus OC43PCR Not Detected (NotDetected); Human Metapneumovirus PCR Not Detected (NotDetected); Influenza A PCR Not Detected (NotDetected); Influenza B PCR Not Detected (NotDetected); Mycoplasma pneumoniae PCR Not Detected (NotDetected); Parainfluenza Virus 1 PCR Not Detected (NotDetected); Parainfluenza Virus 2 PCR Not Detected (NotDetected); Parainfluenza Virus 3 PCR Not Detected (NotDetected); Parainfluenza Virus 4 PCR Not Detected (NotDetected); Respiratory Syncytial VirusPCR Not Detected (NotDetected); Rhinovirus/Enterovirus PCR Not Detected (NotDetected)
[2023-01-12] MEDS ORDERED: ONDANSETRON INJ 2 MG/ML 2 ML VIAL IV PRN (22:27)
[2023-01-12] MEDS ORDERED: RIZATRIPTAN BENZOATE 10 MG TAB PO PRN (22:27)
[2023-01-12] MEDS ORDERED: TRIAMCINOLONE ACET 0.1% CR 15 GM TUBE TOP PRN (22:27)
[2023-01-12] MEDS ORDERED: MoRPHine SULFATE 2 MG/ML CARP IV PRN ×2 (22:27)
[2023-01-12] MEDS ORDERED: ACETAMINOPHEN 325 MG TAB PO PRN (22:27)
[2023-01-12] MEDS ORDERED: EPINEPHrine INJ 1 MG/ML AMP IM PRN (22:46)
[2023-01-12] MEDS ORDERED: AZITHROMYCIN 500 MG in DEXTROSE 5% 250 ML IV ONE (23:00)
[2023-01-12] MEDS: ALBUT/IPRATROP 3MG/0.5MG NEB 3 ML VIAL NEB SCH ×2 (23:05)
[2023-01-12] MEDS ORDERED: ALBUT/IPRATROP 3MG/0.5MG NEB 3 ML VIAL NEB PRN (23:17)
[2023-01-12] MEDS: guaiFENesin 600 MG TABCR PO SCH (23:45)
[2023-01-13] MEDS: MAGNESIUM SULFATE / D5W 1 GM/100 ML BAG IV SCH (01:15)
--- NOTE | 2023-01-13 06:52 | Orthopedic Consultation ---
Date of Service January 13, 2023 Assessment & Plan (1) Subcapital fracture of right hip: We discussed the diagnosis and treatment options with her at bedside. She is currently n.p.o. and will likely operate on the hip later today. My partner, Lex Ortega, will likely do the procedure. We talked briefly about percutaneous fixation versus total hip arthroplasty. She will discuss it more with Dr. Ortega and they can decide that together. She is currently on the OR schedule for this afternoon. (2) Rotator cuff tear, right: With regards to her right shoulder, we will treat her conservatively for now. She examines clinically like a large rotator cuff tear. Hopefully we can treat it conservatively with some therapy or a cortisone injection. We will follow her up in the office for her shoulder. History of Present Illness Reason for Consultation: Right hip fracture. Requesting Physician: . Attending Physician: Rebel Polanco MD Anne is a pleasant 77-year-old female who lives in [place]. She lives with her . She is an independent ambulator and is still fairly active. She states she has been dealing with years of mild to moderate hip pain. She said she has been walking every day and her hips feel better since she has been walking more with her . Unfortunately she fell yesterday onto her right hip and her right shoulder. She was having significant right hip pain. She came to the emergency room where radiographs demonstrated a valgus impacted right femoral neck fracture. 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 She was admitted to the medical service. Orthopedics was consulted to evaluate and treat.. Allergies Allergy/AdvReac Type Severity Reaction Status Date / Time bee venom protein (honey bee) Allergy Severe Anaphylaxis Verified 01/12/23 20:12 nickel Allergy Intermediate swollen Verified 01/12/23 20:12 ears with cheap earrings/jewelry Home Medications Medication Instructions Recorded Confirmed Type cholecalciferol (vitamin D3) 50 2,000 units PO QAM 04/26/19 01/12/23 History mcg (2,000 unit) capsule calcium carbonate 600 mg calcium 600 mg PO DAILY 05/26/19 01/12/23 History (1,500 mg) tablet (Calcium) triamcinolone acetonide 0.1 % 1 appln topical DAILY PRN for skin 07/14/19 01/12/23 History topical cream rizatriptan 10 mg tablet 10 mg PO PRN MIGRAINES #30 tabs 01/16/21 01/12/23 Rx epinephrine 0.3 mg/0.3 mL 0.3 mg (0.3 mL) IM Q10M PRN 03/07/21 01/12/23 Rx injection, auto-injector Anaphylaxis #2 ea cyanocobalamin (vitamin B-12) 100 100 mcg PO DAILY 07/10/21 01/12/23 History mcg tablet mometasone 220 mcg/actuation(30 1 inh inhalation DAILY #3 Inhalers 06/25/22 01/12/23 Rx doses) breath activated powder inhaler (Asmanex Twisthaler) Past Med/Surg History Medical History Arthritis Asthma uses Asmanex daily. well controlled Bladder prolapse Breast cancer Left - Diagnosed 04/27/19 Bronchiolitis Compression fracture of T4 vertebra with routine healing ~T4-T5-T6 (1969). no surgery. Infertility Migraine Osteoporosis Sensorineural hearing loss (SNHL) of left ear with restricted hearing of right ear Surgical History H/O dilation and curettage 1969' H/O hand surgery s - LEFT HAND PINKY FINGER TENDON REPAIR History of colposcopy late History of cryosurgery History of tooth extraction 1964 Hx of laparoscopy Late S/P breast biopsy, left (05/31/19) 04/27/19 S/P breast biopsy, right 04/27/19 - Negative S/P lumpectomy, left breast (06/27/19) Left Breast Lumpectomy with [place] Lymph Node Biopsy (negative) Dr. Cuevas 06/27/19 Status post breast lumpectomy Family History Mother , Passed age 78 of [place] (Second One) Diabetes Acute myocardial infarction Heart disease Father , Passed age 54 of [place] / Respiratory Failure Emphysema of lung Aunt , Passed from Stroke Melanoma Brother Leukemia, Onset Age: 55 was in remission for 18 years, Hairy Cell Leukemia - currently being treated Hypertension Cancer LEUKEMIA Allergies Brother Allergies Sister Hypertension Other Has no children No family history of adverse response to anesthesia No family history of bleeding disorder Denies family history of Ovarian cancer Prostate cancer Breast cancer Lung cancer Colorectal cancer Stroke Social History Smoking Status: Former smoker packs per day: 0.5; Second Hand Exposure: Yes (Father); Do You Dip or Chew Tobacco: No; Tobacco Cessation Education Requested by Patient: No Hx Alcohol Use: Yes Alcohol type: beer Alcohol Intake Frequency Comment: 1-2 beers Hx Substance Use: No Preferred Language: Ukrainian Communication Ability: Effective Visual Impairment: No Limitations Hearing Ability: Normal Truck Hop Required: No Beliefs That Will Affect Care: None marital status: Current Living Situation: Spouse current occupational status: retired 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 Physical Exam On physical examination the right hip. She has pain with logroll. Most of pain is acute in her groin. Examination of the right shoulder, she has a pseud oparalysis. She is unable to do much forward elevation. Passively I can get her through a better range of motion.. Constitutional WD/WN, vitals as above Eyes PERRL, conjunctivae normal, anicteric sclerae ENMT external ear and nose normal, oropharynx normal Neck trachea midline, no thyromegaly Respiratory normal respiratory effort, lungs clear to auscultation Cardiovascular RRR, no murmur, no edema Gastrointestinal (Abdomen) normal bowel sounds, soft, nontender, no hepatosplenomegaly Skin no rashes, warm and dry Psychiatric A+Ox3, euthymic affect Results & Data Results & Data Laboratory Results . Diagnostic Findings X-rays of the right hip show a valgus impacted right femoral neck fracture with some moderate osteoarthritis of the right hip and severe osteoarthritis of the left hip X-rays of the right shoulder show no evidence of fracture.. PG Care Time/CCT Total # of Minutes Spent Total Time Spent with Patient: Total time spent is greater than 50% in coordination of care (as documented) at patient's floor/unit and/or counseling patient: Coding Level of Care Code 95277 IN/OBS CONSULT LVL 4,60M (57 - DECISION FOR SURGERY) Diagnoses Subcapital fracture of right hip S72.011A Encounter type: initial encounter Fracture type: closed Rotator cuff tear, right M75.101 (1) Subcapital fracture of right hip Encounter type: initial encounter Fracture type: closed Qualified Code(s): S72.011A - Unspecified intracapsular fracture of right femur, initial encounter for closed fracture
[2023-01-13 07:27] LABS: BUN Creatinine Ratio 16.3 (10-20); Calcium 8.5 mg/dl (8.6-10.3); Creatinine Clr Calc Pharmacy 93.5 ml/min; Est GFR (African American) 108.9 ml/min; Hematocrit (blood only) 38.8 % (37.0-47.0); Hemoglobin 13.5 g/dl (12.0-16.0); Mean Corpuscular Hemoglobin 30.6 pg (25.0-34.0); Mean Corpuscular Hgb Conc 34.8 g/dL (32.0-36.0); Mean Platelet Volume 10.7 fL (9.4-12.4); Platelet Count 226 K/uL (130-400); Potassium 3.7 mmol/L (3.5-5.1); RDW Coefficient of Variation 13.2 % (11.5-14.5); RDW Standard Deviation 42.8 fL (36.4-46.3); Red Blood Count 4.41 M/uL (4.20-5.40); White Blood Count 10.34 K/ul (4.8-10.8)
--- NOTE | 2023-01-13 07:45 | Pulmonary Consultation ---
Date of Consultation January 13, 2023 Assessment & Plan (1) Abnormal chest x-ray: (2) Hypoxia: Plan Impression: 77-year-old female status post fall with hip fracture. She has an abnormal CT scan dating back for several years which has been followed in the outpatient setting. Comparison of her current chest x-ray to the most recent chest x-ray performed in 2020 does reveal some progression of the upper lobe infiltrates. She has multifactorial hypoxemia currently. Recommendations: 1. Hip fracture: Pulmonary perspective, the patient should proceed to the OR to have the hip fracture repaired. Early repair and early mobilization will prevent pulmonary complications down the road. This was discussed with the patient in detail. DVT prophylaxis per orthopedic surgery and the primary admitting service 2. Abnormal CT scan: The patient CT scan has been abnormal for approximately 12 months. Differential is per Dr. Burt's outpatient note. Nontuberculous mycobacterial infection would be high on the list. The patient is not expectorating any phlegm. If she elects to pursue more invasive approach, bronchoscopy with BAL would be indicated. Would hold off for now until the patient's hip fracture is adequately addressed. Given the longstanding nature of the abnormality, I am not suspicious of an acute infection and would not recommend antibiotics currently. Of note procalcitonin was negative. I think I would allow her to recover from her hip fracture before considering additional intervention. Of note the patient did receive radiation therapy to the left breast although the infiltrates appear to be more dense on the right. Cannot rule out potential radiation toxicity given the stability. 3. Hypoxemia: Would continue supplemental oxygen. Its possible the patient may require some oxygen going forward. Incentive spirometry and early ambulation recommended to soon as possible. From a pulmonary standpoint would recommend stabilization of the hip fracture and rehab. Can address her pulmonary findings in the outpatient setting. Pulmonary will sign off at this point time. Feel free to contact us if we can be of additional assistance. History of Present Illness Attending Physician: Rebel Polanco MD History of Present Illness Asked by hospitalist service to evaluate this patient for preoperative pulmonary clearance for hip fracture repair with hypoxemia and an abnormal chest x-ray. History is obtained from discussion with the patient as well as review the electronic medical record. This 77-year-old female is established with Dr. Burt in the outpatient setting. She has a longstanding history of an abnormal CT scan with tree-in-bud opacities and micronodules. She has been unable to expectorate phlegm and discussions have been held with her regarding pursuing bronchoscopy which she has elected to avoid up to this point in time. She denies any significant pulmonary symptoms including shortness of breath, chest pain or constitutional symptoms such as fevers, chills, or night sweats. Her appetite is good and her weight is stable. She has not had any unintentional weight loss. The patient was walking up some stairs yesterday. She tried to back down the stairs and missed a step resulting in a fall. This resulted in a rotator cuff tear and a hip fracture. She has been seen by orthopedics with plan to take her to the OR today for repair of her hip fracture. She was admitted by the medicine service and there was concern about her hypoxemia and abnormal chest x-ray therefore pulmonary was consulted. The patient's current complaints are only pain in her hip site and shoulder. She is not coughing any phlegm. She denies any chest pain or palpitations. She has not been on oxygen previously but did require oxygen overnight. Her remaining medical history and H&P as per the admission provider notes. Allergies Allergy/AdvReac Type Severity Reaction Status Date / Time bee venom protein (honey bee) Allergy Severe Anaphylaxis Verified 01/12/23 20:12 nickel Allergy Intermediate swollen Verified 01/12/23 20:12 ears with cheap earrings/jewelry Home Medications Medication Instructions Recorded Confirmed Type cholecalciferol (vitamin D3) 50 2,000 units PO QAM 04/26/19 01/12/23 History mcg (2,000 unit) capsule calcium carbonate 600 mg calcium 600 mg PO DAILY 05/26/19 01/12/23 History (1,500 mg) tablet (Calcium) triamcinolone acetonide 0.1 % 1 appln topical DAILY PRN for skin 07/14/19 01/12/23 History topical cream rizatriptan 10 mg tablet 10 mg PO PRN MIGRAINES #30 tabs 01/16/21 01/12/23 Rx epinephrine 0.3 mg/0.3 mL 0.3 mg (0.3 mL) IM Q10M PRN 03/07/21 01/12/23 Rx injection, auto-injector Anaphylaxis #2 ea cyanocobalamin (vitamin B-12) 100 100 mcg PO DAILY 07/10/21 01/12/23 History mcg tablet mometasone 220 mcg/actuation(30 1 inh inhalation DAILY #3 Inhalers 06/25/22 01/12/23 Rx doses) breath activated powder inhaler (Asmanex Twisthaler) Patient History Medical History Arthritis Asthma uses Asmanex daily. well controlled Bladder prolapse Breast cancer Left - Diagnosed 04/27/19 Bronchiolitis Compression fracture of T4 vertebra with routine healing ~T4-T5-T6 (1969). no surgery. Infertility Migraine Osteoporosis Sensorineural hearing loss (SNHL) of left ear with restricted hearing of right ear Surgical History H/O dilation and curettage H/O hand surgery - LEFT HAND PINKY FINGER TENDON REPAIR History of colposcopy late History of cryosurgery History of tooth extraction 1964 Hx of laparoscopy Late S/P breast biopsy, left (05/31/19) 04/27/19 S/P breast biopsy, right 04/27/19 - Negative S/P lumpectomy, left breast (06/27/19) Left Breast Lumpectomy with [place] Lymph Node Biopsy (negative) Dr. Cuevas 06/27/19 Status post breast lumpectomy Family History Mother , Passed age 78 of [place] (Second One) Diabetes Acute myocardial infarction Heart disease Father , Passed age 54 of [place] / Respiratory Failure Emphysema of lung Aunt , Passed from Stroke Melanoma Brother Leukemia, Onset Age: 55 was in remission for 18 years, Hairy Cell Leukemia - currently being treated Hypertension Cancer LEUKEMIA Allergies Brother Allergies Sister Hypertension Other Has no children No family history of adverse response to anesthesia No family history of bleeding disorder Denies family history of Ovarian cancer Prostate cancer Breast cancer Lung cancer Colorectal cancer Stroke Social History Smoking Status: Former smoker packs per day: 0.5; Second Hand Exposure: Yes (Father); Do You Dip or Chew Tobacco: No; Tobacco Cessation Education Requested by Patient: No Hx Alcohol Use: Yes Alcohol type: beer Alcohol Intake Frequency Comment: 1-2 beers Hx Substance Use: No Preferred Language: Serbian Communication Ability: Effective Visual Impairment: No Limitations Hearing Ability: Normal Furrier Apprentice Required: No Beliefs That Will Affect Care: None marital status: Current Living Situation: Spouse current occupational status: retired 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 No additions or deletions Physical Exam Constitutional: WD/WN, vitals as above Neck: trachea midline, no thyromegaly Respiratory: no respiratory distress, no labored breathing, no cough and not tachypneic Auscultation: + crackles and + rhonchi; no wheezes Cardiovascular: RRR, no murmur, no edema Gastrointestinal (Abdomen): normal bowel sounds, soft, nontender, no hepatosplenomegaly Musculoskeletal: Extremities: extremities normal to inspection Skin: no rashes, warm and dry Neurologic: Nonfocal exam Lymphatic: no cervical lymphadenopathy Results & Data Results & Data Vital Signs (Past 12 Hours) Vital Signs Temp Pulse Pulse Resp BP BP Pulse Ox 01/13/23 03:28 36.8 C 96 H 16 133/75 96 01/12/23 21:30 01/12/23 21:30 36.7 C 101 H 16 144/78 H 92 01/12/23 21:24 93 H 01/12/23 21:13 36.7 C 101 H 16 144/78 H 92 01/12/23 20:30 136/81 95 01/12/23 20:00 135/79 95 01/12/23 20:53 102 H 18 136/81 95 O2 Del Method O2 Flow Rate 01/13/23 03:28 Nasal Cannula 4 01/12/23 21:30 Nasal Cannula 4 01/12/23 21:30 Nasal Cannula 4 01/12/23 21:24 01/12/23 21:13 Nasal Cannula 4 01/12/23 20:30 01/12/23 20:00 01/12/23 20:53 Nasal Cannula 2 Diagnostic Findings Previous notes from the patient's outpatient airset caster were extensively reviewed in the electronic medical record. A total of 15 minutes was spent review these records. Critical Care Results & Data Vital Signs (Past 12 Hours) Vital Signs Temp Pulse Pulse Resp BP BP Pulse Ox 01/13/23 03:28 36.8 C 96 H 16 133/75 96 01/12/23 21:30 01/12/23 21:30 36.7 C 101 H 16 144/78 H 92 01/12/23 21:24 93 H 01/12/23 21:13 36.7 C 101 H 16 144/78 H 92 01/12/23 20:30 136/81 95 01/12/23 20:00 135/79 95 01/12/23 20:53 102 H 18 136/81 95 O2 Del Method O2 Flow Rate 01/13/23 03:28 Nasal Cannula 4 01/12/23 21:30 Nasal Cannula 4 01/12/23 21:30 Nasal Cannula 4 01/12/23 21:24 01/12/23 21:13 Nasal Cannula 4 01/12/23 20:30 01/12/23 20:00 01/12/23 20:53 Nasal Cannula 2 Lab & Micro Results (Past 24 Hours) RBC 4.41 M/uL (4.20-5.40) 01/13/23 WBC 10.34 K/ul (4.8-10.8) 01/13/23 Hgb 13.5 g/dl (12.0-16.0) 01/13/23 Hct 38.8 % (37.0-47.0) 01/13/23 MCV 88.0 fL (80.0-100.0) 01/13/23 MCH 30.6 pg (25.0-34.0) 01/13/23 MCHC 34.8 g/dL (32.0-36.0) 01/13/23 RDW Standard Deviation 42.8 fL (36.4-46.3) 01/13/23 RDW Coefficient of Variation 13.2 % (11.5-14.5) 01/13/23 Plt Count 226 K/uL (130-400) 01/13/23 MPV 10.7 fL (9.4-12.4) 01/13/23 Neutrophils (%) (Auto) 88.9 % 01/12/23 Lymphocytes (%) (Auto) 5.6 % 01/12/23 Monocytes # (Auto) 0.74 K/uL (0.11-0.59) H 01/12/23 Eosinophils # (Auto) 0.01 K/uL (0-0.50) 01/12/23 Immature Granulocyte % (Auto) 0.7 % 01/12/23 Neutrophils # (Auto) 14.65 K/uL (1.40-6.50) H 01/12/23 Lymphocytes # (Auto) 0.93 K/uL (1.2-3.4) L 01/12/23 Monocytes # (Auto) 0.74 K/uL (0.11-0.59) H 01/12/23 Eosinophils # (Auto) 0.01 K/uL (0-0.50) 01/12/23 Basophils # (Auto) 0.03 K/uL (0-0.2) 01/12/23 Immature Granulocyte # (Auto) 0.12 K/uL (0.01-0.20) 3 Na 131 mmol/L (136-145) L 01/13/23 K 3.7 mmol/L (3.5-5.1) 01/13/23 Cl 98 mmol/L (98-107) 01/13/23 CO2 25 mmol/L (21-32) 01/13/23 Anion Gap 8 (3-11) 01/13/23 BUN 8 mg/dl (6-23) 01/13/23 Creatinine 0.49 mg/dl (0.6-1.2) L 01/13/23 Estimated GFR ( Amer) 108.9 ml/min 01/13/23 Estimated GFR (Non-Af Amer) 94.0 ml/min 01/13/23 BUN/Creatinine Ratio 16.3 (10-20) 01/13/23 Glu 97 mg/dl (70-99(Fasting)) 01/13/23 Ca 8.5 mg/dl (8.6-10.3) L 01/13/23 Total Bilirubin 0.6 mg/dl (0.2-1.0) 01/12/23 AST 25 U/L (13-39) 01/12/23 ALT 19 U/L (7-52) 01/12/23 Alkaline Phosphatase 40 U/L (34-104) 01/12/23 TP 7.0 gm/dl (6.0-8.3) 01/12/23 Albumin 3.9 gm/dl (3.4-5.0) 01/12/23 Globulin 3.1 gm/dl (2.5-4.0) 01/12/23 Albumin/Globulin Ratio 1.3 (0.9-2) 01/12/23 Mg 2.0 mg/dl (1.7-2.4) 01/13/23 06:32 Calcium Level 8.5 mg/dl (8.6-10.3) L 01/13/23 06:32 Prothromb Time International Ratio 1.1 (0.9-1.1) 01/12/23 16:4 1 Diagnostic Findings (Past 24 Hours) Cervical Spine CT 01/12/23 16:41 CT cervical spine wo con CLINICAL HISTORY: fall TECHNIQUE: Multidetector row helical CT of the cervical spine was performed without administration of intravenous contrast. Coronal and sagittal reformations were obtained. Automated dose lowering techniques and/or adjustment according to patient size were utilized for this exam. Comparison: Comparison is made to CTA neck 04/08/2020 FINDINGS: No acute fractures or subluxations are identified. Degenerative changes are seen in the visualized spine. The alignment is normal. Soft tissues are unremarkable. IMPRESSION: Degenerative changes without evidence of acute bony injury. ACT 112: Negative or not required by law. Electronically signed by: Alexis Enrique M.D. 01/12/2023 5:23 PM Chest X-Ray 01/12/23 16:41 XR chest 1V portable CLINICAL HISTORY: Chest pain, nonspecific TECHNIQUE: Single frontal radiograph of the chest was obtained. Comparison: Comparison is made to chest radiograph 04/08/2020 FINDINGS: No lines and tubes are seen. The cardiomediastinal silhouette is normal. Multifocal airspace opacities are seen. No evidence of pleural effusion or pneumothorax. IMPRESSION: Multifocal airspace opacities may represent atelectasis, pneumonia, and/or aspiration. ACT 112: Negative or not required by law. Electronically signed by: Alexis Enrique M.D. 01/12/2023 5:[address] 01/12/23 16:[address] DOSE: HISTORY: fall TECHNIQUE: Multiaxial CT images of the head were performed without the use of intravenous contrast. Automated exposure control was utilized for this study. A dose lowering technique was utilized adhering to the principles of ALARA. Comparison: Head CT 04/08/2020. Findings: The paranasal sinuses and mastoid air cells are clear. The calvarium and skull base are intact. There is no mass, hematoma, midline shift, acute infarct. White matter hypodensity is nonspecific but suggestive of microvascular ischemic change. The ventricles and sulci demonstrate mild age-related involutional changes. Impression: No acute intracranial abnormality. Atrophy and microvascular ischemic changes. ACT 112: Negative or not required by law. Electronically signed by: Johnathon Rosen M.D. 01/12/2023 5:24 PM Hip/Pelvis X-Ray 01/12/23 16:41 XR hip RT 2V w pelvis CLINICAL HISTORY: fall TECHNIQUE: 2 views of the right hip and single frontal view of the pelvis were obtained. Comparison: None available at the time of this dictation. FINDINGS: There is a subcapital fracture of the right femoral neck. Prominent degenerative changes are seen bilaterally. No soft tissue abnormality is seen. IMPRESSION: Right subcapital femoral neck fracture. Prominent degenerative changes are seen. ACT 112: Negative or not required by law. Electronically signed by: Alexis Enrique M.D. 01/12/2023 5:41 PM Shoulder X-Ray 01/12/23 16:41 XR shoulder RT min 2V routine CLINICAL HISTORY: fall. Right shoulder pain. COMPARISON STUDY: None. FINDINGS: The bones are osteopenic. No acute fracture or dislocation within the right shoulder. The right clavicle is intact. Hazy airspace opacities and interstitial thickening seen within the right lung. This favors pulmonary edema. IMPRESSION: 1. No acute fracture or dislocation within the right shoulder. 2. Hazy airspace opacities and interstitial thickening within the right lung. This favors pulmonary edema. ACT 112: Negative or not required by law. Electronically signed by: Johnathon Rosen M.D. 01/12/2023 5:41 PM I & O Totals 24 Hours 01/12/23 01/13/23 01/14/23 06:59 06:59 06:59 Intake Total 370 / 370 Output Total 500 / 500 Balance -130 / -130 Cumulative 01/12/23 15:56 thru 01/13/23 06:28 Intake Total 370 Output Total 500 Balance -130 RT Ventilator Mngmt (Last Documented) Ventilator Ordered Settings Respiratory Rate 16 01/13/23 03:28 Ventilator - PT Measurements Respiratory Rate 16 PG Care Time/CCT Total # of Minutes Spent Total Time Spent with Patient: Total time spent is greater than 50% in coordination of care (as documented) at patient's floor/unit and/or counseling patient: Coding Level of Care Code 39288 INT INP/OBS CARE 2/55MIN Diagnoses Abnormal chest x-ray R93.89 Hypoxia R09.02
--- NOTE | 2023-01-13 08:10 | XRay Report ---
XR chest 1V portable CLINICAL HISTORY: Hypoxia. COMPARISON STUDY: Chest CT August 21, 2022 and chest radiograph January 12, 2023. FINDINGS: There is no pneumothorax. There may be trace bilateral pleural effusions. Interstitial thic kening and multifocal airspace opacities have slightly improved. Cardiomediastinal silhouette is norm al. IMPRESSION: 1. Interstitial thickening, slightly improved since prior exam. This favors pulmonary edema. Trace bi lateral pleural effusions. 2. Slight improvement in multifocal airspace opacities. These may reflect superimposed pneumonia or a lveolar pulmonary edema. ACT 112: Negative or not required by law. Electronically signed by: Yousuf Neal M.D. 01/13/2023 8:09 AM
[2023-01-13] MEDS: FLUTICASONE FUROATE 100MCG 14 PUFFS/INHALER INH SCH (08:31)
[2023-01-13] MEDS: guaiFENesin 600 MG TABCR PO SCH ×2 (08:32→21:16)
[2023-01-13] MEDS: CALCIUM CARBONATE 1250MG TAB PO SCH (08:33)
--- NOTE | 2023-01-13 08:49 | Orthopedic Progress Note ---
Date of Service January 13, 2023 Assessment & Plan (1) Subcapital fracture of right hip: Xrays reviewed with Dr. Ortega. NPO today. Plan on right hip cemented arthroplasty today. Procedure explained to the patient, including risks, benefits, and alternatives. She wants to proceed with surgery as planned today. Consent obtained. Her knee pain is likely referred from her hip. Subjective .77 year old patient with right femoral neck fracture. Complaining of some knee pain at this time. Review of Systems All systems reviewed & are unremarkable except as noted in HPI & below. Physical Exam .alert and oriented. NAD Right leg: no knee effusion, no tenderness to palpation around her knee. No swelling of the knee. Can actively dorsiflex and plantarflex appropriately. Results & Data Results & Data Laboratory Results . Diagnostic Findings . PG Care Time/CCT Total # of Minutes Spent Total Time Spent with Patient: Total time spent is greater than 50% in coordination of care (as documented) at patient's floor/unit and/or counseling patient: Coding Level of Care Code 12840 Post Operative Follow-Up Diagnoses Subcapital fracture of right hip S72.011A Encounter type: initial encounter Fracture type: closed (1) Subcapital fracture of right hip Encounter type: initial encounter Fracture type: closed Qualified Code(s): S72.011A - Unspecified intracapsular fracture of right femur, initial encounter for closed fracture
[2023-01-13] MEDS ORDERED: AZITHROMYCIN 250 MG in DEXTROSE 5% 250 ML IV SCH (09:00)
[2023-01-13] MEDS ORDERED: CALCIUM CARBONATE 1250MG TAB PO SCH (09:00)
--- NOTE | 2023-01-13 10:33 | XCELERA ---
[id number]
--- NOTE | 2023-01-13 12:39 | Electrocardiogram Report ---
Test Reason : Blood Pressure : / mmHG Vent. Rate : 098 BPM Atrial Rate : 098 BPM P-R Int : 160 ms QRS Dur : 084 ms QT Int : 356 ms P-R-T Axes : 069 096 066 degrees QTc Int : 454 ms Normal sinus rhythm Possible Left atrial enlargement Rightward axis Borderline ECG When compared with ECG of 08-APR-2020 13:47, No significant change was found Confirmed by Miguel Escobar ([id number]) on 01/13/2023 12:39:18 PM Referred By: REFERRED SELF Confirmed By:Miguel Escobar
[2023-01-13] MEDS ORDERED: BUPIVACAINE/EPINEPHRINE 0.5% MPF 1:200,000 30 ML VIAL ONE (12:47)
--- NOTE | 2023-01-13 12:56 | Anesthesiology Consultation ---
Date of Service January 13, 2023 Assessment & Plan (1) Encounter for pre-operative examination: Chart Review Chart Review: Acceptable Risk for Surgery and Patient NOT seen in Pre Admission Testing Pulm note 01/12/23: Recommendations: 1. Hip fracture: Pulmonary perspective, the patient should proceed to the OR to have the hip fracture repaired. Early repair and early mobilization will prevent pulmonary complications down the road. This was discussed with the p atient in detail. DVT prophylaxis per orthopedic surgery and the primary admitting service 2. Abnormal CT scan: The patient CT scan has been abnormal for approximately 12 months. Differential is per Dr. Burt's outpatient note. Nontuberculous mycobacterial infection would be high on the list. The patient is not expectorating any phlegm. If she elects to pursue more invasive approach, bronchoscopy with BAL would be indicated. Would hold off for now until the patient's hip fracture is adequately addressed. Given the longstanding nature of the abnormality, I am not suspicious of an acute infection and would not recommend antibiotics currently. Of note procalcitonin was negative. I think I would allow her to recover from her hip fracture before considering additional intervention. Of note the patient did receive radiation therapy to the left breast although the infiltrates appear to be more dense on the right. Cannot rule out potential radiation toxicity given the stability. 3. Hypoxemia: Would continue supplemental oxygen. Its possible the patient may require some oxygen going forward. Incentive spirometry and early ambulation recommended to soon as possible. Consults Requested none History Surgery Operation Date: 01/13/23 08:50 Proposed Procedures p Right Total Hip Arthroplasty Cemented - Chad Ortega MD Height/Weight Height: 5 ft 7 in Weight: 64.909 kg Allergies Allergy/AdvReac Type Severity Reaction Status Date / Time bee venom protein (honey bee) Allergy Severe Anaphylaxis Verified 01/12/23 20:12 nickel Allergy Intermediate swollen Verified 01/12/23 20:12 ears with cheap earrings/jewelry Medications Home Medications Medication Instructions Recorded Confirmed Last Taken cholecalciferol (vitamin D3) 50 2,000 units PO QAM 04/26/19 01/12/23 06/26/19 07:00 mcg (2,000 unit) capsule calcium carbonate 600 mg calcium 600 mg PO DAILY 05/26/19 01/12/23 06/26/19 14:00 (1,500 mg) tablet (Calcium) triamcinolone acetonide 0.1 % 1 appln topical DAILY PRN for skin 07/14/1901/12 Unknown topical cream rizatriptan 10 mg tablet 10 mg PO PRN MIGRAINES #30 tabs 01/16/21 01/12/23 Unknown epinephrine 0.3 mg/0.3 mL 0.3 mg (0.3 mL) IM Q10M PRN 03/07/21 01/12/23 Unknown injection, auto-injector Anaphylaxis #2 ea cyanocobalamin (vitamin B-12) 100 100 mcg PO DAILY 07/10/21 01/12/23 Unknown mcg tablet mometasone 220 mcg/actuation(30 1 inh inhalation DAILY #3 Inhalers 06/25/22 01/12/23 Unknown doses) breath activated powder inhaler (Asmanex Twisthaler) Active Medications Generic Name Dose Route Start Last Admin Trade Name Freq PRN Reason Stop Dose Admin Calcium Carbonate 1,250 mg 01/13/23 09:00 01/13/23 08:33 Calcium Carbonate 1250mg Tab PO 02/12/23 08:59 1,250 mg DAILY FABIO Administration Fluticasone Furoate 1 puffs 01/13/23 09:00 01/13/23 08:31 Fluticasone Furoate 100mcg 14 Puffs/Inhaler INH 02/12/23 08:59 1 puffs DAILY FABIO Administration Guaifenesin 1,200 mg 01/12/23 22:27 01/13/23 08:32 Guaifenesin 600 Mg Tabcr PO 02/11/23 22:26 1,200 mg Q12 FABIO Administration Morphine Sulfate 2 mg 01/12/23 22:27 01/13/23 03:24 Morphine Sulfate 2 Mg/Ml Carp IV 01/26/23 22:26 2 mg Q3H PRN Administration severe pain Morphine Sulfate 1 mg 01/12/23 22:27 01/13/23 08:23 Morphine Sulfate 2 Mg/Ml Carp IV 01/26/23 22:26 1 mg Q2H PRN Administration moderate pain Past Medical History Medical History (Updated 01/13/23 @ 12:56 by Boone Elam MD) Arthritis Asthma uses Asmanex daily. well controlled Bladder prolapse Breast cancer Left - Diagnosed 04/27/19 Bronchiolitis Compression fracture of T4 vertebra with routine healing ~T4-T5-T6 (1969). no surgery. Encounter for pre-operative examination Hyponatremia Migraine Osteoporosis Sensorineural hearing loss (SNHL) of left ear with restricted hearing of right ear 1) Fall: Plan: Fall from 2steps w/ right hip pain reported CT head negative for acute process, notes atrophy/microvascular ischemic changes CT cervical spine negative, noting degenerative changes Hip xray shows RIGHT subcapital femoral neck fracture Shoulder Xray with no acute fracture, notes hazy opacities/interstitial thickening w/i R lung, ,favoring pulm edema CXR w/ multifocal airspace opacities, ?atelectasis, pneumonia and/or aspiration Past Family History Family History Mother , Passed age 78 of [place] (Second One) Diabetes Acute myocardial infarction Heart disease Father , Passed age 54 of [place] / Respiratory Failure Emphysema of lung Aunt , Passed from Stroke Melanoma Brother Leukemia, Onset Age: 55 was in remission for 18 years, Hairy Cell Leukemia - currently being treated Hypertension Cancer LEUKEMIA Allergies Brother Allergies Sister Hypertension Other Has no children No family history of adverse response to anesthesia No family history of bleeding disorder Denies family history of Ovarian cancer Prostate cancer Breast cancer Lung cancer Colorectal cancer Stroke Past Surgical History Surgical History H/O dilation and curettage H/O hand surgery - LEFT HAND PINKY FINGER TENDON REPAIR History of colposcopy late History of cryosurgery History of tooth extraction 1964 Hx of laparoscopy Late S/P breast biopsy, left (05/31/19) 04/27/19 S/P breast biopsy, right 04/27/19 - Negative S/P lumpectomy, left breast (06/27/19) Left Breast Lumpectomy with [place] Lymph Node Biopsy (negative) Dr. Cuevas 06/27/19 Status post breast lumpectomy Social History Smoking Status: Former smoker tobacco type: cigarettes Do You Dip or Chew Tobacco: No Hx Alcohol Use: Yes Alcohol type: beer alcohol intake frequency: 0-2 drinks per day Hx Substance Use: No substance use type: does not use Physical Exam Vital Signs Last Vital Signs Temp 36.7 C 01/13/23 11:34 Pulse 93 H 01/13/23 11:34 Resp 20 01/13/23 11:34 BP 138/83 01/13/23 11:34 Pulse Ox 95 01/13/23 11:34 O2 Del Method Room Air 01/13/23 11:34 O2 Flow Rate 4 01/13/23 11:34 Testing Laboratory Results 01/13/23 06:32 01/13/23 06:32 PT 11.7 Seconds (9.0-12.0) 01/12/23 16:41 INR 1.1 (0.9-1.1) 01/12/23 16:41 APTT 26.6 Seconds (21.0-31.0) 01/12/23 16:41 Electrocardiogram Date: 01/13/23 Findings: + NSR @ (HR 87) normal ecg Chest X-Ray Date: 01/12/23 XR chest 1V portable CLINICAL HISTORY: Hypoxia. COMPARISON STUDY: Chest CT August 21, 2022 and chest radiograph January 12, 2023. FINDINGS: There is no pneumothorax. There may be trace bilateral pleural effusions. Interstitial thickening and multifocal airspace opacities have slightly improved. Cardiomediastinal silhouette is normal. IMPRESSION: 1. Interstitial thickening, slightly improved since prior exam. This favors pulmonary edema. Trace bilateral pleural effusions. 2. Slight improvement in multifocal airspace opacities. These may reflect superimposed pneumonia or alveolar pulmonary edema. Echocardiogram Date: 01/13/23 LV systolic function is normal. No RWMA EF 60-65% No sig valvular pathology
--- NOTE | 2023-01-13 13:24 | Electrocardiogram Report ---
Test Reason : Blood Pressure : / mmHG Vent. Rate : 087 BPM Atrial Rate : 087 BPM P-R Int : 180 ms QRS Dur : 080 ms QT Int : 386 ms P-R-T Axes : 073 084 058 degrees QTc Int : 464 ms Normal sinus rhythm Normal ECG When compared with ECG of 12-JAN-2023 16:21, (unconfirmed) No significant change was found Confirmed by Miguel Escobar ([id number]) on 01/13/2023 1:24:40 PM Referred By: REFERRED SELF Confirmed By:Miguel Escobar
[2023-01-13] MEDS ORDERED: fentaNYL citrate PF 100 MCG/2 ML VIAL ONE (13:37)
--- NOTE | 2023-01-13 13:46 | Anesthesiology Consultation ---
Date of Service January 13, 2023 Assessment & Plan Chart Review Chart Review: Acceptable Risk for Surgery ASA ASA3 Proposed Anesthesia Anesthesia Type: MAC Spinal Regional Risk / Benefits Reviewed With: PT / POA / Parent / Guardian, Accepts Plan and Informed Consent Obtained History Surgery Operation Date: 01/13/23 08:50 Proposed Procedures p Right Total Hip Arthroplasty Cemented - Chad Ortega MD Height/Weight Height: 5 ft 7 in Weight: 64.909 kg Allergies Allergy/AdvReac Type Severity Reaction Status Date / Time bee venom protein (honey bee) Allergy Severe Anaphylaxis Verified 01/12/23 20:12 nickel Allergy Intermediate swollen Verified 01/12/23 20:12 ears with cheap earrings/jewelry Medications Home Medications Medication Instructions Recorded Confirmed Last Taken cholecalciferol (vitamin D3) 50 2,000 units PO QAM 04/26/19 01/12/23 06/26/19 07:00 mcg (2,000 unit) capsule calcium carbonate 600 mg calcium 600 mg PO DAILY 05/26/19 01/12/23 06/26/19 14:00 (1,500 mg) tablet (Calcium) triamcinolone acetonide 0.1 % 1 appln topical DAILY PRN for skin 07/14/19 01/12/23 Unknown topical cream rizatriptan 10 mg tablet 10 mg PO PRN MIGRAINES #30 tabs 01/16/21 01/12/23 Unknown epinephrine 0.3 mg/0.3 mL 0.3 mg (0.3 mL) IM Q10M PRN 03/07/21 01/12/23 Unknown injection, auto-injector Anaphylaxis #2 ea cyanocobalamin (vitamin B-12) 100 100 mcg PO DAILY 07/10/21 01/12/23 Unknown mcg tablet mometasone 220 mcg/actuation(30 1 inh inhalation DAILY #3 Inhalers 06/25/22 01/12/23 Unknown doses) breath activated powder inhaler (Asmanex Twisthaler) Active Medications Generic Name Dose Route Start Last Admin Trade Name Freq PRN Reason Stop Dose Admin Calcium Carbonate 1,250 mg 01/13/23 09:00 01/13/23 08:33 Calcium Carbonate 1250mg Tab PO 02/12/23 08:59 1,250 mg DAILY FABIO Administration Fluticasone Furoate 1 puffs 01/13/23 09:00 01/13/23 08:31 Fluticasone Furoate 100mcg 14 Puffs/Inhaler INH 02/12/23 08:59 1 puffs DAILY FABIO Administration Guaifenesin 1,200 mg 01/12/23 22:27 01/13/23 08:32 Guaifenesin 600 Mg Tabcr PO 02/11/23 22:26 1,200 mg Q12 FABIO Administration Morphine Sulfate 2 mg 01/12/23 22:27 01/13/23 03:24 Morphine Sulfate 2 Mg/Ml Carp IV 01/26/23 22:26 2 mg Q3H PRN Administration severe pain Morphine Sulfate 1 mg 01/12/23 22:27 01/13/23 08:23 Morphine Sulfate 2 Mg/Ml Carp IV 01/26/23 22:26 1 mg Q2H PRN Administration moderate pain NPO Date Last Intake of Fluids: 01/12/23 Time Last Intake of Fluids: 23:00 Last Intake of Fluids Comment: sip of water 0833 w/meds Date Last Intake of Solids: 01/12/23 Time Last Intake of Solids: 23:00 Past Medical History Medical History (Updated 01/13/23 @ 12:56 by Boone Elam MD) Arthritis Asthma uses Asmanex daily. well controlled Bladder prolapse Breast cancer Left - Diagnosed 04/27/19 Bronchiolitis Compression fracture of T4 vertebra with routine healing ~T4-T5-T6 (1969). no surgery. Encounter for pre-operative examination Hyponatremia Migraine Osteoporosis Sensorineural hearing loss (SNHL) of left ear with restricted hearing of right ear Past Family History Family History Mother , Passed age 78 of [place] (Second One) Diabetes Acute myocardial infarction Heart disease Father , Passed age 54 of [place] / Respiratory Failure Emphysema of lung Aunt , Passed from Stroke Melanoma Brother Leukemia, Onset Age: 55 was in remission for 18 years, Hairy Cell Leukemia - currently being treated Hypertension Cancer LEUKEMIA Allergies Brother Allergies Sister Hypertension Other Has no children No family history of adverse response to anesthesia No family history of bleeding disorder Denies family history of Ovarian cancer Prostate cancer Breast cancer Lung cancer Colorectal cancer Stroke Past Surgical History Surgical History H/O dilation and curettage H/O hand surgery - LEFT HAND PINKY FINGER TENDON REPAIR History of colposcopy late History of cryosurgery History of tooth extraction 1965 Hx of laparoscopy Late S/P breast biopsy, left (05/31/19) 04/27/19 S/P breast biopsy, right 04/27/19 - Negative S/P lumpectomy, left breast (06/27/19) Left Breast Lumpectomy with [place] Lymph Node Biopsy (negative) Dr. Cuevas 06/27/19 Status post breast lumpectomy Social History Smoking Status: Former smoker tobacco type: cigarettes Do You Dip or Chew Tobacco: No Hx Alcohol Use: Yes Alcohol type: beer alcohol intake frequency: 0-2 drinks per day Hx Substance Use: No substance use type: does not use Physical Exam Vital Signs Last Vital Signs Temp 36.7 C 01/13/23 11:34 Pulse 93 H 01/13/23 12:58 Resp 18 01/13/23 12:58 BP 143/80 H 01/13/23 12:58 Pulse Ox 99 01/13/23 12:58 O2 Del Method Nasal Cannula 01/13/23 12:58 O2 Flow Rate 2 01/13/23 12:58 ENMT Thyromental Distance: > or= 3.5 Finger Breadths Mallampati Class: II Cardiovascular Rate/Rhythm: regular rate and regular rhythm Psychiatric Orientation: alert and oriented x 3 Testing Laboratory Results 01/13/23 06:32 01/13/23 06:32 PT 11.7 Seconds (9.0-12.0) 01/12/23 16:41 INR 1.1 (0.9-1.1) 01/12/23 16:41 APTT 26.6 Seconds (21.0-31.0) 01/12/23 16:41 Electrocardiogram Date: 01/13/23 Findings: + NSR @ (HR 87) normal ecg Chest X-Ray Date: 01/12/23 XR chest 1V portable CLINICAL HISTORY: Hypoxia. COMPARISON STUDY: Chest CT August 21, 2022 and chest radiograph January 12, 2023. FINDINGS: There is no pneumothorax. There may be trace bilateral pleural effusions. Interstitial thickening and multifocal airspace opacities have slightly improved. Cardiomediastinal silhouette is normal. IMPRESSION: 1. Interstitial thickening, slightly improved since prior exam. This favors pulmonary edema. Trace bilateral pleural effusions. 2. Slight improvement in multifocal airspace opacities. These may reflect superimposed pneumonia or alveolar pulmonary edema. Echocardiogram Date: 01/13/23 LV systolic function is normal. No RWMA EF 60-65% No sig valvular pathology
--- NOTE | 2023-01-13 13:46 | Anesthesiology Progress Note ---
Date of Service January 13, 2023 Anesthesia Post Procedure Vital Signs Vital Signs: Temp Pulse Pulse Pulse Resp BP BP 01/13/23 12:58 93 H 18 143/80 H 01/13/23 08:00 93 H 01/13/23 08:30 01/13/23 11:34 36.7 C 93 H 20 138/83 01/13/23 08:02 36.7 C 90 14 146/79 H 01/13/23 03:28 36.8 C 96 H 16 133/75 01/12/23 21:30 01/12/23 21:30 36.7 C 101 H 16 144/78 H 01/12/23 21:24 93 H 01/12/23 21:13 36.7 C 101 H 16 144/78 H 01/12/23 20:30 136/81 01/12/23 20:00 135/79 01/12/23 19:30 145/79 H 01/12/23 20:53 102 H 18 136/81 01/12/23 19:00 143/78 H 01/12/23 18:30 155/84 H 01/12/23 18:00 142/86 H 01/12/23 17:57 139/81 01/12/23 16:30 91 H 25 H 147/79 H 01/12/23 18:00 91 H 19 142/86 H 01/12/23 16:24 95 H 01/12/23 16:30 36.7 C 96 H 18 134/74 Pulse Ox O2 Del Method O2 Flow Rate 01/13/23 12:58 99 Nasal Cannula 2 01/13/23 08:00 01/13/23 08:30 Nasal Cannula 2 01/13/23 11:34 95 Room Air 4 01/13/23 08:02 98 Nasal Cannula 4 01/13/23 03:28 96 Nasal Cannula 4 01/12/23 21:30 Nasal Cannula 4 01/12/23 21:30 92 Nasal Cannula 4 01/12/23 21:24 01/12/23 21:13 92 Nasal Cannula 4 01/12/23 20:30 95 01/12/23 20:00 95 01/12/23 19:30 95 01/12/23 20:53 95 Nasal Cannula 2 01/12/23 19:00 95 01/12/23 18:30 94 04/24/23 18:00 90 01/12/23 17:57 91 01/12/23 16:30 95 01/12/23 18:00 93 Nasal Cannula 2 01/12/23 16:24 01/12/23 16:30 81 L Room Air Pain Intensity Right Hip: Pain Intensity: 3
[2023-01-13] MEDS ORDERED: BUPIVACAINE 0.5 % 5 MG/1 ML PF 10ML VIAL ONE (13:47)
[2023-01-13] MEDS ORDERED: ATROPINE SULFATE 0.1 MG/ML 10ML SYR IV PRN ×2 (13:48→16:21)
[2023-01-13] MEDS ORDERED: ONDANSETRON INJ 2 MG/ML 2 ML VIAL IV PRN ×2 (13:48→17:54)
[2023-01-13] MEDS ORDERED: ePHEDrine sulfate 50 MG/ML AMP IV PRN ×2 (13:48→16:21)
[2023-01-13] MEDS ORDERED: DEXAMETHASONE SOD INJ 4 MG/ML VIAL IV PRN (13:48)
[2023-01-13] MEDS ORDERED: TRANEXAMIC ACID / 0.7% NACL 1000MG/100ML BAG IV ONE (14:01)
[2023-01-13] MEDS ORDERED: ceFAZolin 2,000 MG/15 ML IV PUSH IV ONE (14:01)
[2023-01-13] MEDS ORDERED: ceFAZolin 2000MG 2,000 MG/15 ML SYR IV ONE (14:04)
--- NOTE | 2023-01-13 14:04 | History & Physical Bridge Note ---
Date of Service January 13, 2023 History & Physical Bridge Note I have examined the patient, reviewed the History & Physical and in the interval since the performance of the History & Physical I have noted the following changes of clinical significance: no changes noted
[2023-01-13] MEDS ORDERED: TRANEXAMIC ACID / 0.7% NACL 1,000 MG/100 ML BAG IV ONE (14:05)
[2023-01-13] MEDS ORDERED: PROPOFOL IV EMULSION 10 MG/ML 20 ML VIAL IV ONE (14:29)
[2023-01-13] MEDS ORDERED: LIDOCAINE 2% MPF LOCAL 5 ML VIAL ONE (14:29)
--- NOTE | 2023-01-13 16:06 | Operative Report ---
PG Post Operative Report Pre & Post Diagnosis Operation Date: 01/13/23 08:50 Pre-Op Diagnosis: Right displaced subcapital hip fracture with underlying arthritis Post-Op Diagnosis: Right displaced subcapital hip fracture with underlying arthritis I identified the patient and participated in the time-out.: Yes Procedure Operation Date: 01/13/23 08:50 Actual Procedures p Right Total Hip Arthroplasty Cemented(Right) - Chad Ortega MD Surgeon Chad Ortega MD Call Taker Colby Price PA-C Estimated Blood Loss 200 Findings Consistent with Post-Op Diagnosis Specimens Right femoral head sent for pathology Anesthesia Type Spinal MAC Complications none Disposition Accompanied Patient To Recovery: No Indications Patient 77-year-old fairly active female who sustained a fall yesterday. She had cute onset of pain and could not ambulate afterwards. She brought to emergency room x-rays of the displaced subcapital femoral neck fracture. She was admitted by the medicine service. She was indicated for surgical intervention. The patient does have a history of hip pain in the past for the past several years. In light of this and the fairly mild degenerative changes on x-ray we elected proceed with total hip replacement to maximize her function and provide her with the most optimal outcome. Description of Procedure Operative implants consist of: 1 Biomet G7 size 54 mm acetabular shell. 2. Troy hole eliminator. 3. Highly cross-linked polyethylene liner with a 54 mm outer diameter 36 mm inner diameter. 4. Four 6.5 cancellous acetabular screws 1 at 35 mm length 1 to 30 mm length. 5. DePuy Meagher size 3 standard femoral stem. 6. +5/36 mm ceramic articular ball. The patient was taken the operating, identified, placed on the operating table supine position protectors were properly padded. IV antibiotics tried by anesthesia team. A spinal anesthetic was implemented. Cade catheter was placed in sterile fashion. The patient was then placed in the left lateral decubitus position. An axillary roll was placed. Stulberg hip positioner was used for positioning. The right hip and leg were then scrubbed with Hibiclens, prepped with ChloraPrep and draped in usual sterile fashion. A posterolateral approach of the right hip was then performed to a curvilinear incision centered over the greater trochanter. Sharp dissection was carried through subcutaneous tissue down to the IT band gluteal fascia. The IT band gluteal fascia were incised longitudinally in line with skin incision. The underlying greater bursa was excised. The piriformis and external rotators as well as the posterior hip joint capsule were then released from the posterior aspect hip as a single layer. Great care was taken throughout the procedure protect the sciatic nerve at all times. The hip was internally rotated. A femoral neck osteotomy cut was made with Final Cut about 15 mm above the lesser trochanter. Femoral head was removed and sent for pathology. The femur was retracted anteriorly. Attention drawn the acetabulum. The acetabular labrum was excised. The pulmonary fat was excised. Sequential reaming the acetabular was then performed again with size 45 and progressing up to 53. I did ream with a 54 reamer and then placed a 54 mm cup in about 40 degrees lateral opening and 20 degrees of anteversion. It was fixed with two 6.5 cancellous acetabular screws. Trial liner was placed. Attention drawn the femur. The proximal femur was entered with a Picarro cutter followed by canal finder and lateralizing reamer. I then broached beginning with a size 1 and progressing up to a 3. We got pretty good fit with the 3 stem especially up in the metaphyseal area. The hip was then trialed and the +5 articular ball seem to recreate soft tissue tension appropriately, equal leg lengths and stability. We elect to place these implants. Nupathe all trial implants were removed. Troy hole limiter was placed. Highly cross-linked polyethylene liner was placed. A double batch Palacos G cement was mixed. As distal cement restrictor was placed in the canal was injected with the cement. Size 3 stem was then placed and held until the cement hardened. A final cement check was then performed. A +5/36 mm ceramic articular ball was placed. Hip was located once again found to be stable. Attention drawn to closing. The wound was irrigated xochitl. Lavage solution. We did inject locally with 60 cc of half percent Marcaine with epinephrine. The posterior capsule and external rotators then repaired through drill holes in the posterior trochanter as a single layer with #2 Tycron suture. The IT band gluteal fascia then closed with #1 PDS suture in a running fashion for subcutaneous tissues then closed with 2 layers the deep layer #1 Vicryl suture subcutaneous tissues with 2-0 Dexon suture in a buried interrupted fashion the skin was closed skin regan. Leg was then cleaned and dried and sterile dressing "Xeroform, 4 fours, sterile ABD pad, foam tape was applied. The patient then transferred to the recovery room in stable condition. Patient tolerated procedure well and there were no complications. Colby Price, my physician mortgage assistant, was present for the entire procedure. His assistance was essential and required for appropriate patient positioning, prepping and draping, surgical exposure, performing the technical details of the operation, placement the implants, closure of the wound, and placement of the sterile bandage. I attest to the content of the Intraoperative Record and any orders documented therein. Any exceptions are noted below.
[2023-01-13] MEDS: MEPERIDINE HCL 25 MG/ML CARP/VIAL ONE ×2 (16:17→16:24)
[2023-01-13] MEDS ORDERED: MEPERIDINE HCL 25 MG/ML CARP/VIAL IV STA (16:21)
--- NOTE | 2023-01-13 16:21 | XRay Report ---
XR hip 1V RT w pelvis CLINICAL HISTORY: IN PACU - Post Surgical TECHNIQUE: 2 views of the right hip and single frontal view of the pelvis were obtained. Comparison: Comparison is made to hip radiographs 01/13/2020 FINDINGS: Patient is status post total hip arthroplasty with expected postsurgical changes including soft tissu e swelling and subcutaneous emphysema. IMPRESSION: Expected postoperative appearance status post placement of total hip arthroplasty. ACT 112: Negative or not required by law. Electronically signed by: Alexis Enrique M.D. 01/13/2023 4:19 PM
--- NOTE | 2023-01-13 16:35 | Anesthesiology Progress Note ---
Date of Service January 13, 2023 Anesthesia Post Procedure Vital Signs Vital Signs: Temp Pulse Pulse Pulse Resp BP BP 01/13/23 16:20 99 H 24 141/86 H 01/13/23 16:30 94 H 26 H 139/77 01/13/23 16:10 100 H 21 107/88 01/13/23 16:00 36.5 C 99 H 24 129/78 01/13/23 12:58 93 H 18 143/80 H 01/13/23 08:00 93 H 01/13/23 08:30 01/13/23 11:34 36.7 C 93 H 20 138/83 01/13/23 08:02 36.7 C 90 14 146/79 H 01/13/23 03:28 36.8 C 96 H 16 133/75 01/12/23 21:30 01/12/23 21:30 36.7 C 101 H 16 144/78 H 01/12/23 21:24 93 H 01/12/23 21:13 36.7 C 101 H 16 144/78 H 01/12/23 20:30 136/81 01/12/23 20:00 135/79 01/12/23 19:30 145/79 H 01/12/23 20:53 102 H 18 136/81 01/12/23 19:00 143/78 H 01/12/23 18:30 155/84 H 01/12/23 18:00 142/86 H 01/12/23 17:57 139/81 01/12/23 18:00 91 H 19 142/86 H Pulse Ox O2 Del Method O2 Flow Rate 01/13/23 16:20 91 Nasal Cannula 4 01/13/23 16:30 99 Nasal Cannula 4 01/13/23 16:10 95 Nasal Cannula 4 01/13/23 16:00 93 Nasal Cannula 4 01/13/23 12:58 99 Nasal Cannula 2 01/13/23 08:00 01/13/23 08:30 Nasal Cannula 2 01/13/23 11:34 95 Room Air 4 01/13/23 08:02 98 Nasal Cannula 4 01/13/23 03:28 96 Nasal Cannula 4 01/12/23 21:30 Nasal Cannula 4 01/12/23 21:30 92 Nasal Cannula 4 01/12/23 21:24 01/12/23 21:13 92 Nasal Cannula 4 01/12/23 20:30 95 01/12/23 20:00 95 01/12/23 19:30 95 01/12/23 20:53 95 Nasal Cannula 2 01/12/23 19:00 95 01/12/23 18:30 94 01/12/23 18:00 90 01/12/23 17:57 91 01/12/23 18:00 93 Nasal Cannula 2 Pain Intensity Right Hip: Pain Intensity: 3 Transfer of Care Handoff Completed per policy Notes Mental Status: alert / awake / arousable Patient Amnestic to Procedure: Yes Nausea / Vomiting: adequately controlled Pain: adequately controlled Airway Patency, RR, SpO2: stable & adequate BP & HR: stable & adequate Hydration State: stable & adequate Neuraxial Anesthesia: was administered and sensory block is resolving Anesthetic Complications: no major complications apparent
[2023-01-13] MEDS ORDERED: HYDROmorphone INJ 0.5 MG/0.5 ML SYR IV PRN (17:54)
[2023-01-13] MEDS ORDERED: bisacodyL 10 MG SUPP PR PRN (17:54)
[2023-01-13] MEDS ORDERED: ALUMINUM/MAGNESIUM SUSP 30 ML UDC PO PRN (17:54)
[2023-01-13] MEDS ORDERED: NALOXONE HCL 0.4 MG/1 ML VIAL/CARP IV PRN (17:54)
[2023-01-13] MEDS ORDERED: METOCLOPRAMIDE HCL INJ 5 MG/ML 2 ML VIAL IV PRN (17:54)
[2023-01-13] MEDS ORDERED: MAGNESIUM HYDROXIDE SUSP 30 ML UDC PO PRN (17:54)
[2023-01-13] MEDS ORDERED: cefTRIAXone SODIUM 2,000 MG in DEXTROSE 5% 50 ML IV SCH (17:58)
[2023-01-13] MEDS: KETOROLAC TROMETHAMINE 15 MG/ML VIAL IV SCH (18:41)
[2023-01-13] MEDS: SODIUM CHLORIDE 0.9% 1000ML 1,000 ML IV SCH (18:43)
[2023-01-13] MEDS: ASCORBIC ACID 500 MG TAB PO SCH (19:32)
--- NOTE | 2023-01-13 19:59 | Hospitalist Progress Note ---
Date of Service January 13, 2023 Assessment & Plan (1) Fall: Plan: Fall from 2steps after losing balance-found to have right hip fracture and right rotator cuff tear CT head negative for acute process, notes atrophy/microvascular ischemic changes CT cervical spine negative for acute, noting degenerative changes Hip xray shows RIGHT subcapital femoral neck fracture Shoulder Xray with no acute fracture, notes hazy opacities/interstitial thickening w/i R lung, ,favoring pulm edema CXR w/ multifocal airspace opacities, ?atelectasis, pneumonia and/or aspiration WBC elevation 16.48k on admit, likely stress response from fall-no active pneumonia Procalcitonin negative, ESR negative, but was hypoxic which may have contributed to her fall? Hypomagnesemic-replaced Respiratory bio fire PCR negative (2) Subcapital fracture of right hip: Plan: noted on imaging after fall orthopedics consult appreciated-now status post right hip replacement on 01/13 Continue pain control, bowel regimen PT/OT Follow CBC, BMP in the morning (3) Hypoxia: Plan: noted drop in sats to 81% on RA on admission Prior CT chest in Aug 2022 w/ "No change in a 1.4 cm mixed solid and groundglass right upper lobe nodule since prior chest CT February 06, 2022. This remains indeterminate and continued imaging follow-up is recommended. No significant change in tree-in-bud nodularity within the lungs as described above. This favors a chronic infectious or inflammatory process." In patient w/ hx breast ca not on any hormonal treatment, s/p lumpectomy Echocardiogram normal Do not suspect heart failure, BNP normal Procalcitonin negative, leukocytosis resolved Duonebs, incentive spirometer, flutter valve, Mucinex BID Ceftriaxone/Azithro for coverage initially started but discontinued by pulmonary Thought to have chronic changes and possible CORI, follows with pulmonary outpatient Appreciate pulmonology consult here-nothing further to be done Supplemental O2 to maintain sats greater than 92% (4) Contusion of right shoulder: Plan: pain control Suspected rotator cuff tear - defer further imaging/management to orthopedics (5) Malignant neoplasm of upper-outer quadrant of right breast in female, estrogen receptor positive: Plan: follows with Dr Henok madrigal/ [facility] oncology (6) Vertigo: Plan: reported hx of such, denied symptoms contributing to fall (7) Asthma: Plan: hx asthma, on Asmanex daily Plan DVT prophylaxis-SCDs, await further orthopedics input Disposition-continued stay medical floor with telemetry overnight and if no events on telemetry and hypoxia stable-downgrade to medical/surgical unit in the morning Admission and Anticipated Discharge Date Admission Date: January 12, 2023 Subjective Patient seen after return from hip replacement surgery. She is starting to get feeling back through her right lower extremity. Otherwise has no complaints. Is eating dinner. She is unable to lift her right hand up to feed herself due to her shoulder pain. Telemetry with normal sinus rhythm, PACs, rates in the 90s Physical Exam Constitutional: WD/WN, vitals as above Neck: trachea midline, no thyromegaly Respiratory: normal respiratory effort (With 2 L nasal cannula in place); no cough and not tachypneic Auscultation: no crackles, no rhonchi and no wheezes Cardiovascular: RRR, no murmur, no edema Chest (Breasts): Chest: normal inspection of chest Gastrointestinal (Abdomen): normal bowel sounds, soft, nontender, no hepatosplenomegaly Skin: no rashes, warm and dry Psychiatric: A+Ox3, euthymic affect Results & Data Results & Data Vital Signs (Past 12 Hours) Vital Signs Temp Pulse Pulse Pulse Resp BP Pulse Ox 01/13/23 19:24 36.9 C 97 H 18 121/72 95 01/13/23 18:47 98 H 01/13/23 18:00 36.7 C 96 H 20 146/75 H 95 01/13/23 17:37 37.2 C 105 H 20 149/80 H 91 01/13/23 17:10 96 H 20 139/75 93 01/13/23 17:00 36.7 C 96 H 24 138/77 92 01/13/23 16:50 94 H 19 141/74 H 92 01/13/23 16:40 94 H 19 133/75 92 01/13/23 16:20 99 H 24 141/86 H 91 01/13/23 16:30 94 H 26 H 139/77 99 01/13/23 16:10 100 H 21 107/88 95 01/13/23 16:00 36.5 C 99 H 24 129/78 93 01/13/23 12:58 93 H 18 143/80 H 99 01/13/23 08:00 93 H 01/13/23 08:30 01/13/23 11:34 36.7 C 93 H 20 138/83 95 01/13/23 08:02 36.7 C 90 14 146/79 H 98 O2 Del Method O2 Flow Rate 01/13/23 19:24 Nasal Cannula 01/13/23 18:47 01/13/23 18:00 Nasal Cannula 2 01/13/23 17:37 Room Air 01/13/23 17:10 Nasal Cannula 2 01/13/23 17:00 Nasal Cannula 2 01/13/23 16:50 Nasal Cannula 2 01/13/23 16:40 Nasal Cannula 2 01/13/23 16:20 Nasal Cannula 4 01/13/23 16:30 Nasal Cannula 4 01/13/23 16:10 Nasal Cannula 4 01/13/23 16:00 Nasal Cannula 4 01/13/23 12:58 Nasal Cannula 2 01/13/23 08:00 01/13/23 08:30 Nasal Cannula 2 01/13/23 11:34 Room Air 4 01/13/23 08:02 Nasal Cannula 4 Laboratory Results CBC, TSH, ESR, BMP, BNP, vitamin D level and blood cultures all reviewed Diagnostic Findings Echocardiogram reviewed-normal ECG Additional Comments: ECG on 01/13/2023 at 9:52 AM with normal sinus rhythm, rate 87, no ischemic changes PG Care Time/CCT Total # of Minutes Spent Total Time Spent with Patient: Total time spent is greater than 50% in coordination of care (as documented) at patient's floor/unit and/or counseling patient: Coding Level of Care Code 82226 SUB INP/OBS CARE 2/35MIN Diagnoses Fall W19.XXXA Encounter type: initial encounter Subcapital fracture of right hip S72.011A Encounter type: initial encounter Fracture type: closed Hypoxia R09.02 Contusion of right shoulder S40.011A Encounter type: initial encounter Malignant neoplasm of upper-outer quadrant of right breast in female, estrogen receptor positive C50.411; Z17.0 Vertigo R42 Asthma J45.909 (1) Fall Encounter type: initial encounter Qualified Code(s): W19.XXXA - Unspecified fall, initial encounter (2) Subcapital fracture of right hip Encounter type: initial encounter Fracture type: closed Qualified Code(s): S72.011A - Unspecified intracapsular fracture of right femur, initial encounter for closed fracture (4) Contusion of right shoulder Encounter type: initial encounter Qualified Code(s): S40.011A - Contusion of right shoulder, initial encounter
[2023-01-13] MEDS: ceFAZolin 1000MG 1,000 MG/7.5 ML SYR IV SCH (21:11)
[2023-01-13] MEDS: DOCUSATE SODIUM 100 MG CAP PO SCH (21:14)
[2023-01-13] MEDS: SENNA 8.6 MG TAB PO SCH (21:15)
[2023-01-13] MEDS: ACETAMINOPHEN 500 MG TAB PO SCH (21:41)
[2023-01-13] MEDS ORDERED: TRANEXAMIC ACID / 0.7% NACL 1,000 MG/100 ML BAG IV SCH (22:00)
[2023-01-14] MEDS: KETOROLAC TROMETHAMINE 15 MG/ML VIAL IV SCH ×4 (00:57→19:40)
[2023-01-14] MEDS: SODIUM CHLORIDE 0.9% 1000ML 1,000 ML IV SCH (05:08)
[2023-01-14] MEDS: ACETAMINOPHEN 500 MG TAB PO SCH ×3 (06:31→22:00)
[2023-01-14] MEDS: ceFAZolin 1000MG 1,000 MG/7.5 ML SYR IV SCH (06:33)
[2023-01-14 08:27] LABS: BUN Creatinine Ratio 19.7 (10-20); Calcium 8.1 mg/dl (8.6-10.3); Creatinine Clr Calc Pharmacy 75.1 ml/min; Est GFR (African American) 101.3 ml/min; Est GFR (Non-African American) 87.4 ml/min; Potassium 3.9 mmol/L (3.5-5.1)
[2023-01-14 08:37] LABS: Basophils # (auto) 0.04 K/uL (0-0.2); Basophils % (auto) 0.5 %; Eosinophils # (auto) 0.34 K/uL (0-0.50); Hemoglobin 10.1 g/dl (12.0-16.0); Immature Granulocytes # (auto) 0.02 K/uL (0.01-0.20); Immature Granulocytes % (auto) 0.2 %; Lymphocytes # (auto) 0.89 K/uL (1.2-3.4); Lymphocytes % (auto) 10.4 %; Mean Corpuscular Hemoglobin 30.9 pg (25.0-34.0); Mean Corpuscular Hgb Conc 33.7 g/dL (32.0-36.0); Mean Corpuscular Volume 91.7 fL (80.0-100.0); Mean Platelet Volume 10.6 fL (9.4-12.4); Monocytes # (auto) 0.73 K/uL (0.11-0.59); Monocytes % (auto) 8.6 %; Neutrophils % (auto) 76.3 %; Platelet Count 150 K/uL (130-400); RDW Coefficient of Variation 13.6 % (11.5-14.5); RDW Standard Deviation 45.3 fL (36.4-46.3); Red Blood Count 3.27 M/uL (4.20-5.40); White Blood Count 8.52 K/ul (4.8-10.8)
[2023-01-14] MEDS: guaiFENesin 600 MG TABCR PO SCH ×2 (09:18→20:18)
[2023-01-14] MEDS: DOCUSATE SODIUM 100 MG CAP PO SCH ×2 (09:18→20:18)
[2023-01-14] MEDS: ASCORBIC ACID 500 MG TAB PO SCH ×2 (09:19→18:21)
[2023-01-14] MEDS: CALCIUM CARBONATE 1250MG TAB PO SCH (09:19)
[2023-01-14] MEDS: FLUTICASONE FUROATE 100MCG 14 PUFFS/INHALER INH SCH (09:20)
[2023-01-14] MEDS: MULTIVITAMIN TAB PO SCH (09:20)
--- NOTE | 2023-01-14 12:24 | Hospitalist Progress Note ---
Date of Service January 14, 2023 Assessment & Plan (1) Fall: Plan: Fall from 2steps after losing balance-found to have right hip fracture and right rotator cuff tear CT head negative for acute process, notes atrophy/microvascular ischemic changes CT cervical spine negative for acute, noting degenerative changes Hip xray shows RIGHT subcapital femoral neck fracture Shoulder Xray with no acute fracture, notes hazy opacities/interstitial thickening in R lung, ,favoring pulm edema CXR w/ multifocal airspace opacities, ?atelectasis, pneumonia and/or aspiration WBC elevation 16.48k on admit, likely stress response from fall-no active pneumonia Procalcitonin negative, ESR negative, but was hypoxic which may have contributed to her fall? 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 This remains indeterminate and continued imaging follow-up is recommended. No significant change in tree-in-bud nodularity within the lungs as described above. This favors a chronic infectious or inflammatory process." Patient is with a hx breast ca, s/p lumpectomy Echocardiogram normal Do not suspect heart failure, BNP normal Procalcitonin negative, leukocytosis resolved Pulmonology says that the CT scan of the patient has been abnormal for the last 12 months. Nontuberculous mycobacterial infection is high on the differential. Because she is not expectorating any phlegm, bronchoscopy with BAL would be indicated but hold off for now until after recovery from hip fracture. Did not suspect acute infection and recommends discontinuing antibiotics especially as procalcitonin negative. Also with a history of radiation therapy to the left breast although infiltrates appear to be more dense on the right-cannot rule out potential radiation toxicity. -Mario Alberto, incentive spirometer, flutter valve, Mucinex BID -Continue supplemental O2 to maintain sats greater than 92% and wean off as tolerated -May need two-step walk test prior to discharge from rehab (4) Contusion of right shoulder: Plan: pain control as needed Suspected rotator cuff tear - defer further imaging/management to orthopedics Add ice to right shoulder (5) Malignant neoplasm of upper-outer quadrant of right breast in female, estrogen receptor positive: Plan: follows with Dr Henok madrigal/ [facility] oncology (6) Vertigo: Plan: reported hx of such, denied symptoms contributing to fall (7) Asthma: Plan: hx asthma, on Asmanex daily Plan DVT prophylaxis-SCDs, await further orthopedics input but suspect she will need aspirin 81 Mg p.o. twice daily ordered x4 weeks Disposition-continued stay but downgrade to medical/surgical unit. Recommend transfer to orthopedic postoperative floor. Admission and Anticipated Discharge Date Admission Date: January 12, 2023 Subjective Patient reports pain is controlled. She ambulated with PT. Denies shortness of breath or chest pain. Remains on 2 L nasal cannula but pulse ox is 97% at rest. Telemetry with normal sinus rhythm, occasional PACs. Physical Exam Constitutional: WD/WN, vitals as above Neck: trachea midline, no thyromegaly Respiratory: normal respiratory effort (With 2 L nasal cannula in place); no cough and not tachypneic Auscultation: no crackles, no rhonchi and no wheezes Cardiovascular: RRR, no murmur, no edema Chest (Breasts): Chest: normal inspection of chest Gastrointestinal (Abdomen): normal bowel sounds, soft, nontender, no hepatosplenomegaly Skin: no rashes, warm and dry Psychiatric: A+Ox3, euthymic affect Results & Data Results & Data Vital Signs (Past 12 Hours) Vital Signs Temp Pulse Resp BP Pulse Ox O2 Del Method O2 Flow Rate 01/14/23 08:07 36.6 C 82 16 122/68 96 Room Air 01/14/23 04:08 36.5 C 80 20 104/64 96 Nasal Cannula 2 Laboratory Results CBC, BMP reviewed Blood cultures-no growth to date PG Care Time/CCT Total # of Minutes Spent Total Time Spent with Patient: Total time spent is greater than 50% in coordination of care (as documented) at patient's floor/unit and/or counseling patient: Coding Level of Care Code 84098 SUB INP/OBS CARE MIN Diagnoses Fall W19.XXXA Encounter type: initial encounter Subcapital fracture of right hip S72.011A Encounter type: initial encounter Fracture type: closed Hypoxia R09.02 Contusion of right shoulder S40.011A Encounter type: initial encounter Malignant neoplasm of upper-outer quadrant of right breast in female, estrogen receptor positive C50.411; Z17.0 Vertigo R42 Asthma J45.909 (1) Fall Encounter type: initial encounter Qualified Code(s): W19.XXXA - Unspecified fall, initial encounter (2) Subcapital fracture of right hip Encounter type: initial encounter Fracture type: closed Qualified Code(s): S72.011A - Unspecified intracapsular fracture of right femur, initial encounter for closed fracture (4) Contusion of right shoulder Encounter type: initial encounter Qualified Code(s): S40.011A - Contusion of right shoulder, initial encounter
--- NOTE | 2023-01-14 15:48 | Progress Notes ---
DATE OF SERVICE: 01/14/2023 SUBJECTIVE: A 77-year-old white female postoperative day 1 from a right hip replacement done for fra cture. She is doing pretty well. Pain is controlled. She is just going to learn to walk again. De nies any chest pain or shortness of breath. Not feeling dizzy or lightheaded. OBJECTIVE: VITAL SIGNS: Temperature is 36.7. Vital signs are stable. PHYSICAL EXAMINATION: GENERAL: Physical examination shows a pleasant, elderly female. She was walking to and from the [facility] when I visited her and doing pretty well with a walker. EXTREMITIES: Examination of the right hip reveals the dressing to be clean, dry, and intact. Leg le ngths are equal. Thigh is soft and supple. She can dorsiflex and plantarflex her foot appropriately . She is neurologically intact. LABORATORY DATA: Hemoglobin 10.1. Hematocrit 30.0. Electrolytes are stable. ASSESSMENT: A 77-year-old white female postoperative day 1 from a right cemented hip replacement don e for a fracture. She is doing pretty well. Pain is controlled. Hip is located. She is neurologic ally intact. PLAN: 1. DVT prophylaxis including thigh-high TEDs, SCDs, and we would recommend a baby aspirin twice a da y for 6 weeks. 2. PT/OT. She can fully weightbear as tolerated. Does need to obey hip precautions. 3. Pain control, doing okay with current pain regimen. 4. Medical management as per the medicine service. 5. Disposition: She is orthopedically okay for discharge any time. I do think she would benefit fr om a rehab stay. I need to see her back 2 to 3 weeks out from surgery date. Any orthopedic question s can be directed to me at [phone]. Job ID: [id number]
[2023-01-14] MEDS: SENNA 8.6 MG TAB PO SCH (20:19)
[2023-01-14] MEDS: ASPIRIN 81 MG ECTAB PO SCH (20:19)
[2023-01-15] MEDS: KETOROLAC TROMETHAMINE 15 MG/ML VIAL IV SCH ×3 (01:05→13:46)
[2023-01-15 06:45] LABS: Basophils # (auto) 0.05 K/uL (0-0.2); Basophils % (auto) 0.6 %; Eosinophils # (auto) 0.48 K/uL (0-0.50); Hematocrit (blood only) 27.9 % (37.0-47.0); Hemoglobin 9.6 g/dl (12.0-16.0); Immature Granulocytes # (auto) 0.03 K/uL (0.01-0.20); Immature Granulocytes % (auto) 0.4 %; Lymphocytes # (auto) 0.93 K/uL (1.2-3.4); Lymphocytes % (auto) 11.6 %; Mean Corpuscular Hemoglobin 31.4 pg (25.0-34.0); Mean Corpuscular Hgb Conc 34.4 g/dL (32.0-36.0); Mean Corpuscular Volume 91.2 fL (80.0-100.0); Mean Platelet Volume 10.7 fL (9.4-12.4); Monocytes % (auto) 8.7 %; Neutrophils # (auto) 5.84 K/uL (1.40-6.50); Neutrophils % (auto) 72.7 %; Platelet Count 147 K/uL (130-400); RDW Coefficient of Variation 13.4 % (11.5-14.5); RDW Standard Deviation 44.6 fL (36.4-46.3); Red Blood Count 3.06 M/uL (4.20-5.40); White Blood Count 8.03 K/ul (4.8-10.8)
[2023-01-15] MEDS: traMADol HCL 50 MG TABLET PO PRN ×2 (06:47→14:56)
[2023-01-15] MEDS: ACETAMINOPHEN 500 MG TAB PO SCH ×3 (06:48→22:02)
[2023-01-15 07:04] LABS: BUN Creatinine Ratio 28.3 (10-20); Calcium 8.1 mg/dl (8.6-10.3); Creatinine Clr Calc Pharmacy 99.6 ml/min; Est GFR (African American) 111.2 ml/min; Potassium 3.8 mmol/L (3.5-5.1)
[2023-01-15] MEDS: FLUTICASONE FUROATE 100MCG 14 PUFFS/INHALER INH SCH (08:19)
[2023-01-15] MEDS: CALCIUM CARBONATE 1250MG TAB PO SCH (08:21)
[2023-01-15] MEDS: CHOLECALCIFEROL 1,000 UNITS 25 MCG TAB PO SCH (08:21)
[2023-01-15] MEDS: guaiFENesin 600 MG TABCR PO SCH ×2 (08:21→20:29)
[2023-01-15] MEDS: ASCORBIC ACID 500 MG TAB PO SCH ×2 (08:21→17:41)
[2023-01-15] MEDS: DOCUSATE SODIUM 100 MG CAP PO SCH ×2 (08:21→20:32)
[2023-01-15] MEDS: ASPIRIN 81 MG ECTAB PO SCH ×2 (08:21→20:30)
[2023-01-15] MEDS: MULTIVITAMIN TAB PO SCH (08:21)
[2023-01-15] MEDS: CYANOCOBALAMIN (B-12) 100 MCG TABLET PO SCH (08:21)
--- NOTE | 2023-01-15 12:33 | Progress Notes ---
DATE OF SERVICE: 01/15/2023. SUBJECTIVE: A 77-year-old female, postoperative day 2 from a right hip replacement done for a fractu re. She is doing pretty well. Hip is sore, but pain is controlled. No chest pain or shortness of b reath. Feels a little bit better than yesterday. OBJECTIVE: VITAL SIGNS: Temperature 36.4. Vital signs are stable. GENERAL: Shows a pleasant middle-aged female. She is sitting on her bedside chair, talking to her h usband and looks comfortable. EXTREMITIES: Examination of the right hip reveals the incision to be clean, dry and intact. There i s no drainage. Her thigh is soft and supple. Leg lengths were equal. She is neurologically intact. LABORATORY DATA: Hemoglobin 9.6. Hematocrit 27.9. Electrolytes are stable. ASSESSMENT: A 77-year-old white female, postoperative day 2 from a right total hip replacement done for a fracture. She is doing well. Pain is controlled. Hip is located. She is neurologically inta ct. PLAN: 1. DVT prophylaxis includes thigh-high TEDs, SCDs, and aspirin twice a day for 6 weeks. 2. PT/OT. She can fully weight bear as tolerated on the right lower extremity. She does need to ob ey hip precautions. 3. Pain control, doing okay with current pain regimen. 4. Medical management as per the medicine service. 5. Disposition: She is orthopedically okay for discharge any time. I believe we are just going to wait for rehab/[facility] facility bed. Job ID: [id number]
--- NOTE | 2023-01-15 17:47 | Hospitalist Progress Note ---
Date of Service January 15, 2023 Assessment & Plan (1) Fall: Plan: Fall from 2 steps after losing balance-found to have right hip fracture and right rotator cuff tear CT head negative for acute process, notes atrophy/microvascular ischemic changes CT cervical spine negative for acute, noting degenerative changes Hip xray shows RIGHT subcapital femoral neck fracture Shoulder Xray with no acute fracture, notes hazy opacities/interstitial thickening in R lung, favoring pulm edema CXR w/ multifocal airspace opacities, ?atelectasis, pneumonia and/or aspiration WBC elevation 16.48k on admit, likely stress response from fall-no active pneumonia Procalcitonin negative, ESR negative, but was hypoxic which may have contributed to her fall? 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 orthopedics consult appreciated-now status post right hip replacement on 01/13 Doing well postoperatively Hemoglobin slight drop with acute blood loss anemia from hip fracture-hemoglobin 13.5 on admission, now down to 9.6-hemodynamically stable Continue pain control, bowel regimen-add on daily Miralax as no BM since admission PT/OT Follow CBC, BMP in the morning (3) Hypoxia: Plan: noted drop in sats to 81% on RA on admission and continues to require 2 L nasal cannula Prior CT chest in Aug 2022 w/ "No change in a 1.4 cm mixed solid and groundglass right upper lobe nodule since prior chest CT February 06, 2022. This remains indeterminate and continued imaging follow-up is recommended. No significant change in tree-in-bud nodularity within the lungs as described above. This favors a chronic infectious or inflammatory process." Patient is with a hx breast ca, s/p lumpectomy Echocardiogram normal Do not suspect heart failure, BNP normal Procalcitonin negative, leukocytosis resolved Pulmonology says that the CT scan of the patient has been abnormal for the last 12 months. Nontuberculous mycobacterial infection is high on the differential. Because she is not expectorating any phlegm, bronchoscopy with BAL would be indicated but hold off for now until after recovery from hip fracture. Did not suspect acute infection and recommends discontinuing antibiotics especially as procalcitonin negative. Also with a history of radiation therapy to the left breast although infiltrates appear to be more dense on the right-cannot rule out potential radiation toxicity. Now weaned off O2 at rest on 01/15 -continue Duonebs, incentive spirometer, flutter valve, Mucinex BID -Continue supplemental O2 to maintain sats greater than 92% and wean off as tolerated-may need with exertion -May need two-step walk test prior to discharge from rehab -f/u with PULM after discharge from rehab (4) Contusion of right shoulder: Plan: pain control as needed Suspected rotator cuff tear - defer further imaging/management to orthopedics ROM is improved since admission-flex forward to 90 degrees - ice to right shoulder -f/u with Ortho after discharge (5) Malignant neoplasm of upper-outer quadrant of right breast in female, estrogen receptor positive: Plan: follows with Dr Henok madrigal/ [facility] oncology (6) Vertigo: Plan: reported hx of such, denied symptoms contributing to fall (7) Asthma: Plan: hx asthma, on Asmanex daily Plan DVT prophylaxis-SCDs, aspirin 81 Mg p.o. twice daily x6 weeks Disposition-medically stable for discharge-awaiting insurance auth for rehab--> plan for dc to [facility] tomorrow Admission and Anticipated Discharge Date Admission Date: January 12, 2023 Subjective Pt feeling better today, pain in hip controlled, right shoulder feeling better. No BM since admission Eating well. No SOB, weaned off O2, no cough Physical Exam Constitutional: WD/WN, vitals as above Neck: trachea midline, no thyromegaly Respiratory: no cough and not tachypneic Auscultation: no crackles, no rhonchi and no wheezes Cardiovascular: RRR, no murmur, no edema Chest (Breasts): Chest: normal inspection of chest Gastrointestinal (Abdomen): normal bowel sounds, soft, nontender, no hepatosplenomegaly Skin: no rashes, warm and dry Psychiatric: A+Ox3, euthymic affect Results & Data Results & Data Vital Signs (Past 12 Hours) Vital Signs Temp Pulse Resp BP Pulse Ox O2 Del Method O2 Flow Rate 01/15/23 15:31 36.8 C 92 H 18 111/67 95 Room Air 01/15/23 08:00 Room Air 0 01/15/23 07:52 36.4 C L 87 18 127/71 96 Room Air PG Care Time/CCT Total # of Minutes Spent Total Time Spent with Patient: Total time spent is greater than 50% in coordination of care (as documented) at patient's floor/unit and/or counseling patient: Coding Level of Care Code 02674 SUB INP/OBS CARE MIN Diagnoses Fall W19.XXXA Encounter type: initial encounter Subcapital fracture of right hip S72.011A Encounter type: initial encounter Fracture type: closed Hypoxia R09.02 Contusion of right shoulder S40.011A Encounter type: initial encounter Malignant neoplasm of upper-outer quadrant of right breast in female, estrogen receptor positive C50.411; Z17.0 Vertigo R42 Asthma J45.909 (1) Fall Encounter type: initial encounter Qualified Code(s): W19.XXXA - Unspecified fall, initial encounter (2) Subcapital fracture of right hip Encounter type: initial encounter Fracture type: closed Qualified Code(s): S72.011A - Unspecified intracapsular fracture of right femur, initial encounter for closed fracture (4) Contusion of right shoulder Encounter type: initial encounter Qualified Code(s): S40.011A - Contusion of right shoulder, initial encounter
[2023-01-15] MEDS: POLYETHYLENE (MIRALAX) 17 GM PACK PO SCH (18:15)
[2023-01-15] MEDS: SENNA 8.6 MG TAB PO SCH (20:28)
[2023-01-15 22:19] VITALS: O2SAT 94
[2023-01-16] MEDS: ACETAMINOPHEN 500 MG TAB PO SCH (05:47)
[2023-01-16 07:20] VITALS: BP 113/65; PULSE 84; TEMP 98.4
--- NOTE | 2023-01-16 07:46 | Progress Notes ---
DATE OF SERVICE: 01/16/2023. SUBJECTIVE: A 77-year-old white female, postoperative day #3 from a right hip replacement for fractu re. She is doing pretty well. Pain seems to be improving. No chest pain or shortness of breath. R jaquelin just kind of waiting for placement. OBJECTIVE: VITAL SIGNS: Temperature 36.6. Vital signs are stable. GENERAL: Shows a pleasant, elderly female. I had to wake her this morning. She looks completely co mfortable. EXTREMITIES: Examination of the right hip reveals the incision to be clean, dry and intact. Leg kyrie gths were equal. She is neurologically intact. ASSESSMENT: A 77-year-old female, postoperative day #3 from right total hip replacement done for a f racture. She is doing well. Improving daily. PLAN: 1. DVT prophylaxis includes thigh-high TEDs, SCDs, and aspirin twice a day. 2. PT/OT, weight bear as tolerated. Right total hip protocol. 3. Pain control, doing okay with current pain regimen. 4. Disposition: Plan to discharge to a snf facility or rehab when bed available. She i s orthopedically okay for discharge any time. I need to see her back two to three weeks out from riya richard date. Any orthopedic questions can be directed to me at [phone]. Job ID: [id number]
[2023-01-16] MEDS: FLUTICASONE FUROATE 100MCG 14 PUFFS/INHALER INH SCH (08:07)
[2023-01-16] MEDS: CHOLECALCIFEROL 1,000 UNITS 25 MCG TAB PO SCH (08:07)
[2023-01-16] MEDS: CYANOCOBALAMIN (B-12) 100 MCG TABLET PO SCH (08:07)
[2023-01-16] MEDS: MULTIVITAMIN TAB PO SCH (08:08)
[2023-01-16] MEDS: guaiFENesin 600 MG TABCR PO SCH (08:08)
[2023-01-16] MEDS: ASPIRIN 81 MG ECTAB PO SCH (08:08)
[2023-01-16] MEDS: CALCIUM CARBONATE 1250MG TAB PO SCH (08:08)
[2023-01-16 08:30] LABS: BUN Creatinine Ratio 21.4 (10-20); Calcium 8.4 mg/dl (8.6-10.3); Creatinine Clr Calc Pharmacy 109.1 ml/min; Est GFR (African American) 114.6 ml/min; Est GFR (Non-African American) 98.9 ml/min; Potassium 4.1 mmol/L (3.5-5.1)
[2023-01-16] MEDS: POLYETHYLENE (MIRALAX) 17 GM PACK PO SCH (08:34)
[2023-01-16] MEDS: ASCORBIC ACID 500 MG TAB PO SCH (08:34)
[2023-01-16] MEDS: DOCUSATE SODIUM 100 MG CAP PO SCH (08:34)
[2023-01-16 08:40] LABS: Basophils # (auto) 0.05 K/uL (0-0.2); Basophils % (auto) 0.8 %; Eosinophils # (auto) 0.37 K/uL (0-0.50); Eosinophils % (auto) 5.6 %; Hematocrit (blood only) 27.8 % (37.0-47.0); Hemoglobin 9.4 g/dl (12.0-16.0); Immature Granulocytes # (auto) 0.02 K/uL (0.01-0.20); Immature Granulocytes % (auto) 0.3 %; Lymphocytes # (auto) 0.89 K/uL (1.2-3.4); Lymphocytes % (auto) 13.4 %; Mean Corpuscular Hemoglobin 31.2 pg (25.0-34.0); Mean Corpuscular Hgb Conc 33.8 g/dL (32.0-36.0); Mean Corpuscular Volume 92.4 fL (80.0-100.0); Mean Platelet Volume 11.3 fL (9.4-12.4); Monocytes # (auto) 0.65 K/uL (0.11-0.59); Monocytes % (auto) 9.8 %; Neutrophils # (auto) 4.67 K/uL (1.40-6.50); Neutrophils % (auto) 70.1 %; Platelet Count 148 K/uL (130-400); Platelet Estimate Normal (Normal); RDW Coefficient of Variation 13.5 % (11.5-14.5); RDW Standard Deviation 46.2 fL (36.4-46.3); Red Blood Count 3.01 M/uL (4.20-5.40); White Blood Count 6.65 K/ul (4.8-10.8)
--- NOTE | 2023-01-16 11:11 | Discharge Summary ---
Date of Service January 16, 2023 Admission HPI Per Admitting Provider 77yo female w/ PMHx significant for breast ca, lung nodule, asthma, osteoporosis presented after falling backwards down two steps when stepping backwards and landed on her right hip and shoulder. Imaging showed evidence for right subcapital fracture. Also O2 to 81%, responding nicely on 2L NC. Patient evaluated in B3B, , Doug, at bedside. Currently in NAD, on 2L NC. Reporting pain to hip, getting fentanyl but appears comfortable laying still. She denies any justyna shortness of breath, does note she may have been more short of breath with activities but has been over period of 6+ months. She denies any palpitations/history of atrial fibrillation. Does have hx breast ca s/p lumpectomy and not on hormonal therapy due to her osteoporosis. She does follow with Dr Burt for her asthma, on asthmanex daily. She notes they have been monitoring lung nodule. No recent night sweats/chills, unexplained weight loss. Inquired about sputum production rec'd by Dr Burt. She notes sometimes able to get stuff up after coughing for extended period of time but it has been white/clear, sometimes yellow. She notes she just hadn't gotten sputum done. Hx migraines but hasn't had one in several months. She denies having any fevers or chills at home over the past several weeks. No sick contacts. She notes her and have been very careful during the pandemic. COVID testing negative on admission. NO nausea/vomiting, abdominal pain, lightheadedness/dizziness. Discussed code status, full code if anything were to happen. Discussed consultation for orthopedics for possible surgical evaluation but would not want her weight bearing at this time. Currently has stovall in place. ER Course: WBC elevation 16.4k. Imaging w/ right subcapital femoral neck fracture. CXR w/ multifocal pneumonia vs atelectasis vs aspiration. ER provider ordering Duoneb (being given while exiting the room). Ceftriaxone 2gm x1. Zofran 4mg IV. Principal Diagnosis Right hip fracture s/p hip arthroplasty Right shoulder rotator cuff tear Hypoxia, abnormal CXR Discharge Exam Constitutional WD/WN, vitals as above Neck trachea midline, no thyromegaly Respiratory no cough and not tachypneic Auscultation: no crackles, no rhonchi and no wheezes Cardiovascular RRR, no murmur, no edema Chest (Breasts) Chest: normal inspection of chest Gastrointestinal (Abdomen) normal bowel sounds, soft, nontender, no hepatosplenomegaly Musculoskeletal right hip surgical wound c/d/i, regan in place Skin no rashes, warm and dry Psychiatric A+Ox3, euthymic affect Discharge Data Allergies Allergy/AdvReac Type Severity Reaction Status Date / Time bee venom protein (honey bee) Allergy Severe Anaphylaxis Verified 01/12/23 20:12 nickel Allergy Intermediate swollen Verified 01/12/23 20:12 ears with cheap earrings/jewelry Consultations 01/12/23 17:59 ED Decision to Admit Stat 01/12/23 22:27 Consult Orthopedic Surgery Routine 01/12/23 23:18 Consult Pulmonology Routine Procedures Performed Operation Date: 01/13/23 08:50 Actual Procedures p Right Total Hip Arthroplasty Cemented(Right) - Chad Ortega MD Ordered Studies 01/12/23 16:41 CT cervical spine wo con Stat CT head/brain wo con Stat Hospital Course (1) Fall: Fall from 2 steps after losing balance-found to have right hip fracture and right rotator cuff tear CT head negative for acute process, notes atrophy/microvascular ischemic changes CT cervical spine negative for acute, noting degenerative changes Hip xray shows RIGHT subcapital femoral neck fracture Shoulder Xray with no acute fracture, notes hazy opacities/interstitial thickening in R lung, favoring pulm edema CXR w/ multifocal airspace opacities, ?atelectasis, pneumonia and/or aspiration WBC elevation 16.48k on admit, likely stress response from fall-no active pneumonia Procalcitonin negative, ESR negative, but was hypoxic which may have contributed to her fall? Hypomagnesemic-replaced Respiratory bio fire PCR negative PT/OT consults placed-recommend rehab (2) Subcapital fracture of right hip: Age-related osteoporotic fracture of the right hip orthopedics consult appreciated-now status post right hip replacement on 01/13 Doing well postoperatively Hemoglobin slight drop with acute blood loss anemia from hip fracture-hemoglobin 13.5 on admission, now down to 9.4 and remains-hemodynamically stable Continue pain control, bowel regimen- daily Miralax, senna, docusate--> had BM on 01/16 PT/OT (3) Hypoxia: noted drop in sats to 81% on RA on admission and required 2 L nasal cannula-now weaned to room air Prior CT chest in Aug 2022 w/ "No change in a 1.4 cm mixed solid and groun dglass right upper lobe nodule since prior chest CT February 06, 2022. This remains indeterminate and continued imaging follow-up is recommended. No significant change in tree-in-bud nodularity within the lungs as described above. This favors a chronic infectious or inflammatory process." Patient is with a hx breast ca, s/p lumpectomy Echocardiogram normal Do not suspect heart failure, BNP normal Procalcitonin negative, leukocytosis resolved Pulmonology says that the CT scan of the patient has been abnormal for the last 12 months. Nontuberculous mycobacterial infection is high on the differential. Because she is not expectorating any phlegm, bronchoscopy with BAL would be indicated but hold off for now until after recovery from hip fracture. Did not suspect acute infection and recommends discontinuing antibiotics especially as procalcitonin negative. Also with a history of radiation therapy to the left breast although infiltrates appear to be more dense on the right-cannot rule out potential radiation toxicity. -continue Asmanex, incentive spirometer, flutter valve -Continue supplemental O2 to maintain sats greater than 92% and wean off as tolerated-may need with exertion at rehab -May need two-step walk test prior to discharge from rehab -f/u with PULM after discharge from rehab (4) Contusion of right shoulder: pain control as needed Suspected rotator cuff tear - defer further imaging/management to orthopedics ROM is improved since admission-flex forward to 90 degrees - ice to right shoulder -f/u with Ortho after discharge (5) Malignant neoplasm of upper-outer quadrant of right breast in female, estrogen receptor positive: follows with Dr Henok madrigal/ [facility] (6) Vertigo: reported hx of such, denied symptoms contributing to fall (7) Asthma: hx asthma, on Asmanex daily Plan DVT prophylaxis-SCDs, aspirin 81 Mg p.o. twice daily x6 weeks Disposition-medically stable for discharge to [facility] today Total Time Total Time Spent Total Time Spent (In Minutes): 35 min Discharge Plan Discharge Items Patient Disposition: Transfer [facility] Reason For Visit: FALL, HIP FRACTURE, POSSIBLE PNEUMONIA Discharge Diagnosis: Right Hip Replacement for Fracture Right shoulder rotator cuff tear Hypoxia, Abnormal chest xray Activity: Per Instructions section Activity Comment: Follow/Obey hip precautions at all times. Weightbearing: Full weightbearing Weightbearing Comment: Weightbear as tolerated obeying hip precautions at all times. Non-emergency contact: Primary Care Provider, Sur[facility] and [facility] Call non-emergency contact if: you have any medication questions and your symptoms worsen Follow-up/Referrals: Miguel Dee MD [Primary Care Provider] - William Burt MD [Physician] - (Follow up within 1 month for your abnormal chest xray) Chad Ortega MD [Physician] - (Orthopedic follow-up 2-3 weeks from surgery date.) Diet: Regular Addtl Attending Provider Instructions: ACTIVITY RECOMMENDATIONS: Physical Therapy: * Aggressive physical therapy is not usually needed. You will learn to take care of yourself safely and walk. * Follow the "Hip Precautions Instructions." * In some cases, the dialysis social worker at the hospital will arrange to have a therapist come to your house for the first couple of weeks to help you learn these skills. * You need to practice on your own or with the help of a family member as needed. * When you learn these skills, most of the therapy can be done on your own. Home Exercise: * You were shown a series of exercises in the hospital. Do these exercises three to four times each day including the exercises you were shown in physical therapy. Walking: * Get up and walk several times each day. For the first four weeks, try not to stand or walk for more than one hour at a time. If you do stand or walk for more than one hour, you will not hurt anything, but your leg will likely swell. * As you feel comfortable, you may change from the walker or crutches to a cane and then to independent walking. MEDICATIONS: New Medicine: * You will likely be taking one or more of these medicines: 1. Tramadol - Take, as directed, when you need it, every six hours to control your pain. 2. Aspirin - Thins your blood to lessen the chance of forming a blood clot. * The most common side effects of pain medicine and iron are nausea and constipation. If nausea or constipation is too much of a problem or if you have any questions about your new medicines or doses, call [facility] at . We will try to help you manage these issues. "VERY IMPORTANT TO READ AND REVIEW" Pain: * The immediate post-operative period after hip replacement surgery is often quite painful. * You are given a prescription for pain medicine. You should take it, as directed, when you need it, especially before physical therapy and before going to bed. Pain that interferes with sleep is very common and can last several months. * You will likely need pain medicine for the first two to four weeks. It will not stop all of the pain. The pain will lessen and as you feel better, you may change to milder pain medicine such as Tylenol. * The most common side effects of pain medicine are nausea and constipation, so don't take more than you need. SPECIAL CARE INSTRUCTIONS: TEDs/Elastic Stockings: * The white elastic stockings help limit swelling and prevent blood clots from forming in your legs. The more you wear them, the more they work. * Wear them for six weeks. Incision Site Care: * Remove dressing postoperative day 2 and then shower. Keep direct shower pressure off the incision site. * After showering, cover regan with dry gauze and change daily or more frequently if the dressing is getting saturated with drainage. * May completely stop using bandage if wound is dry and no drainage * [place] are removed between 2 and 3 weeks post-op. If your follow-up appointment is made before 2 weeks, please have your appointment re- scheduled. It is too early to remove the regan. Prevention of Infection: * Take antibiotics one hour before any dental cleaning, dental work, urological procedure, gastrointestinal procedure or any invasive surgery in order to prevent your new joint from getting infected. * You may get the antibiotics from the doctor performing the procedure or you may call our office at before and we will call in a prescription to the pharmacy of your choice. Things to Watch For: * Drainage from the incision site that occurs more than one week after your surgery. * Severely increased leg pain or swelling. * Increased redness at the incision site. * Fever above 102 degrees Fahrenheit. * Unusual chest pain or shortness of breath. * Unusual pain or burning with urination. Call [facility] at with any of the above problems or if you have any questions about your medicines or recovery. FOLLOW UP VISIT: Make an appointment to see your doctor for approximately two weeks after surgery for a progress check and staple removal by calling the office at . Addtl Industrial Engineering Director Provider Instructions: For your abnormal chest xray and low oxygen levels, you may need some supplemental oxygen with exertion. Please follow up with the [facility] within 1 month. Pending Studies at Discharge: Yes Studies:: Final blood culture results-no growth to date Stand-Alone Forms: My [facility] Skilled Items Patient informed of condition?: Yes DNR: No Discharge Level of Care: Skilled Communicable Disease: No Discharge Prognosis: Improving Lines: None Urinary Catheter: No Medications and DC Order Prescriptions: New acetaminophen [Tylenol Extra Strength] 500 mg Tablet 1,000 mg PO Q8 Qty: 180 0RF aspirin 81 mg Tablet,Delayed Release (Dr/Ec) 81 mg PO BID 42 Days Qty: 84 0RF tramadol 50 mg Tablet 50 - 100 mg PO Q6H PRN (Reason: moderate pain) Qty: 10 0RF docusate sodium 100 mg Capsule 100 mg PO BID Qty: 60 0RF polyethylene glycol 3350 [Miralax] 17 gram Powder In Packet 17 g PO DAILY Qty: 30 0RF sennosides [Senokot] 8.6 mg Tablet 17.2 mg PO HS Qty: 60 0RF multivitamin with folic acid [Daily-Amrik (with folic acid)] 400 mcg Tablet 1 tab PO QAM Qty: 30 0RF Continued triamcinolone acetonide 0.1 % cream 1 appln TOP DAILY PRN (Reason: for skin) Asmanex Twisthaler 220 mcg/ actuation (30) aerosol powdr breath activated 1 inh INHALATION DAILY Qty: 3 3RF rizatriptan 10 mg tablet 10 mg PO PRN Qty: 30 3RF epinephrine 0.3 mg/0.3 mL auto-injector 0.3 mg IM Q10M PRN (Reason: Anaphylaxis) Qty: 2 3RF cholecalciferol (vitamin D3) 2,000 unit capsule 2,000 units PO QAM cyanocobalamin (vitamin B-12) 100 mcg tablet 100 mcg PO DAILY calcium carbonate [Calcium 600] 600 mg calcium (1,500 mg) Tablet 600 mg PO DAILY Discharge Orders: Discharge Order (Routine); Ordered 01/16/23 Ordered By: Melissa Hwang Admission Data Admit Date/Time: 01/12/23 18:41 Attending Provider: Melissa Hwang Admit Provider: Rebel Polanco Primary Care Provider: Miguel Dee Other Providers: [facility] ; [facility] ; [facility] ; Rebel Polanco ; Fransico Howard ; Gerson Leyva Coding Level of Care Code 85314 INP/OBS DISCH >30 MIN Diagnoses Fall W19.XXXA Encounter type: initial encounter Subcapital fracture of right hip S72.011A Encounter type: initial encounter Fracture type: closed Hypoxia R09.02 Contusion of right shoulder S40.011A Encounter type: initial encounter Malignant neoplasm of upper-outer quadrant of right breast in female, estrogen receptor positive C50.411; Z17.0 Vertigo R42 Asthma J45.909
== END 2023-01-16 12:48 | DRG 522 ==
LOC: ED 16:12 → SUATTDRO 18:41 → 2N 18:41 → 3N 01-14 20:48